=== PATIENT | female | born 1990 | race Caucasian/White ===

== ENCOUNTER 2023-07-11 16:05 | Outpatient (REF) | payer BC, SELFPAY | END 2023-07-11 16:06 | disposition home or self-care (01) | LOC: LAB 16:05 | PROVIDERS: PCP Obstetrics & Gynecology; Visit Provider Obstetrics & Gynecology | DX: N92.0 Excessive and frequent menstruation with regular cycle (principal) | CPT/HCPCS: 88305 ==

== ENCOUNTER 2023-08-01 19:45 | Outpatient (REF) | payer BC, SELFPAY ==
--- OUTSIDE RECORDS SUMMARY | 2023-08-01 20:06 | XMS_ITS | CCD ---
Author Organization [facility] Care Team Providers Care Curriculum Designer Name Role Phone REQUEST, DR NONE LISTED Primary Care Unavaila ble WEST, DR YOLANDA Riddle Consulting Unavailable ARBEN, DR NICOLAS Attending Unavailable ARBEN, DR NICOLAS Admitting Unavailable ARBEN, DR NICOLAS Consulting Unavailable REQUEST, DR TEAGUE LISTED Primary Care Unavaila ble ARBEN, DR NICOLAS Attending Unavailable ARBEN, DR NICOLAS Admitting Unavailable REQUEST, DR TEAGUE LISTED Primary Care Unavaila ble ARBEN, DR NICOLAS Attending Unavailable ARBEN, DR NICOLAS Admitting Unavailable REQUEST, DR TEAGUE LISTED Primary Care Unavaila ble ARBEN, DR NICOLAS Attending Unavailable ARBEN, DR NICOLAS Admitting Unavailable ARBEN, DR NICOLAS Consulting Unavailable SHARP, ADELAIDA Consulting Unavailable ISRA II, GEORGES Consulting Unavailable REQUEST, DR TEAGUE LISTED Primary Care Unavaila ble ARBEN, DR NICOLAS Consulting Unavailable ARBEN, DR NICOLAS Attending Unavailable ARBEN, DR NICOLAS Admitting Unavailable Angelina Gómez Unavailable Fany Oneill Unavailable FIDENCIO THEODORE Attending Unavailable ARBEN, FIDENCIO Attending Unavailable Arben, Fidencio Attending Unavailable Fidencio Theodore Admitting Unavailable Fidencio Theodore Attending Provider [phone] Medications Current Medications Medication Drug Class(es) Dates Sig (Normalized) Sig (Original) fluticasone propionate 0.05 mg/actuat metered dose nasal spray (1 source) Corticosteroid Start: 01-08-2023 take 2 spray(s) nasal route once daily Fluticasone Propionate 50 MCG/ACT 2 sprays Nasally Once a day for 14 day(s) Dec, Active methylPREDNISolone 4 mg oral tablet (1 source) Corticosteroid Start: 01-08-2023 Medrol 4 MG as directed Orally As Directed for 6 days 13 Dec, 2022 Active Completed/Discontinued Medications Medication Drug Class(es) Dates Sig (Normalized) Sig (Original) 12 hr guaiFENesin 600 mg / pseudoephedrine hydrochloride 60 mg extended release oral tablet (2 sources) alpha-Adrenergic Agonist Start: 06-25-2022 take 2 tablets by mouth every twelve hours Mucinex D 60-600 MG 2 tablets as needed Orally Twice a day for 5 days May, Not-Taking Problems Problem Classification Problem Date Documented Date Episodic/Chronic Calculus of urinary tract (1 source) Calculus of kidney; Translations: [CALCULUS OF KIDNEY] Onset: 04-13-2022 Episodic Essential hypertension (1 source) Essential (primary) hypertension; Translations: [ESSENTIAL PRIMARY HYPERTENSION] Onset: 04-13-2022 Chronic Immunizations and screening for infectious disease (4 sources) Encounter for screening for human papillomavirus (HPV); Translations: [Contact with and (suspected) exposure to other viral communicable diseases] Onset: 02-22-2022 Episodic Menstrual disorders (5 sources) Excessive and frequent menstruation with regular cycle; Translations: [EXCESS FREQ MENSTRUATION W/REG CYCL] Onset: 04-12-2022 Chronic Other screening for suspected conditions (not mental disorders or infectious disease) (4 sources) Encounter for screening for malignant neoplasm of cervix; Translations: [ENC SCREENING MALIG NEOPLASM CERV] Onset: 02-15-2022 Episodic Other upper respiratory infections (2 sources) Acute upper respiratory infection, unspecified Episodic Residual codes; unclassified (1 source) Family history of malignant neoplasm, unspecified; Translations: [FAM HX MALIGNANT NEOPLASM UNS] Onset: 04-13-2022 Episodic Results Test Name Value Interpretation Reference Range Facility [facility] 07-11-2023 L Specimen: [id number] Received: 07/12/23 Status: VIN Sweet Num: [id number] Spec Type: Surgical Subm Dr: Fidencio Theodore Tissues: A Endometrium - Biopsy (EMBX) Procedures: HE/2, Gross/Micro L4 Age/ Patient Sex Location Account Attending Physician Berenice Robert 32/F LABELL [id number] Fidencio Theodore SPEC NUM: [id number] RECD: 07/12/23 STATUS: VIN SWEET NUM: [id number] RAHEEM: 07/11/23-1450 [facility] DR: Fidencio Theodore ENTERED: 07/12/23-1235 [facility] [address]: Lois,Lab SPEC TYPE: Surgical DEPT: RODRIGO STEVENS ORDERED: HE/2, Gross/Micro L4 ORDERED: HE, Gross/Micro L4 Pathological Diagnosis Endometrial biopsy: -Multiple strips of slightly unevenly developed secretory endometrium of the early phase type, including occasional persistent tubal metaplasia at the surface epithelium, and occasionally in the tubular glands are also focally noticed, otherwise without any hyperplasia or atypia identified Gross Description Received in formalin, labeled with the patient's name, date of and EM BX are multiple lai tissue fragments measuring in aggregate 1.9 x 0.7 x 0.2 cm, entirely submitted in A1. Clinical history: Menorrhagia with irregular cycle CPT Codes 39478 Specimen: [id number] Received: 07/12/23 Status: BRIANNAMelissa Sweet Num: [id number] Spec Type: Surgical Subm Dr: Fidencio Theodore Tissues: A Endometrium - Biopsy (EMBX) Procedures: HE/2, Gross/Micro L4 Patient: Berenice Robert [id number] (Continued) Signed (signature on file) Saul-Kavon Monaco MD 07/15/23 1457 Normal [facility] COVID + FLU Quick Testingon 06-25-2022 SARS-CoV-2 (COVID-19) RNA ANDREW+probe Ql (Unsp spec) Negative [facility] Other COVID + FLU Quick Testing Negative [facility] Other Quick Strepon 06-25-2022 S. pyogenes Org specific cx Ql (Throat) Negative [facility] Other Quick Strep [facility] Other CBC AUTO DIFFon 04-12-2022 BASO # 0.1 103/ul Normal 0.0-0.1 [facility] Comment on above: Performed By: #### C BC #### [facility] [address] [place] [address] Dr. Peri Monaco Basophils/100 WBC (Bld) 0.5 % Normal 0.2-2.0 [facility] Comment on above: Performed By: #### C BC #### [facility] [address] [place] [address] Dr. Peri Monaco EO # 0.3 103/ul Normal 0.0-0.7 [facility] Comment on above: Performed By: #### C BC #### [facility] [address] [place] [address] Dr. Peri Monaco Eosinophils/100 WBC (Bld) 3.0 % Normal 0.9-7.0 [facility] Comment on above: Performed By: #### C BC #### [facility] [address] [place] [address] Dr. Peri Monaco Erythrocyte distribution width (RBC) [Ratio] 12.5 % Normal 11.0-15.0 [facility] Comment on above: Performed By: #### C BC #### [facility] [address] [place] [address] Dr. Peri Monaco Hematocrit (Bld) [Volume fraction] 40.2 % Normal 36.0-48.0 [facility] Comment on above: Performed By: #### C BC #### [facility] [address] [place] [address] Dr. Peri Monaco Hemoglobin (Bld) [Mass/Vol] 13.7 g/dL Normal 12.0-16.0 [facility] Comment on above: Performed By: #### C BC #### [facility] [address] [place] [address] Dr. Peri Monaco IG # 0.04 10e3/ul Critically high 0.00-0.03 [facility] Comment on above: Performed By: #### C BC #### [facility] [address] [place] [address] Dr. Peri Monaco IG % 0.3 % Normal 0.0-0.5 [facility] Comment on above: Performed By: #### C BC #### [facility] [address] [place] [address] Dr. Peri Monaco LYMPH # 3.4 103/ul Normal 1.2-3.8 [facility] Comment on above: Performed By: #### C BC #### [facility] [address] [place] [address] Dr. Peri Monaco Lymphocytes/100 WBC (Bld) 29.8 % Normal 20.5-60.0 [facility] Comment on above: Performed By: #### C BC #### [facility] [address] [place] [address] Dr. Peri Monaco MANUAL DIFF REQ NO Normal [facility] Comment on above: Performed By: #### C BC #### [facility] [address] [place] [address] Dr. Peri Monaco MCH (RBC) [Entitic mass] 28.9 pg Normal 26.7-34.0 [facility] Comment on above: Performed By: #### C BC #### [facility] [address] [place] [address] Dr. Peri Monaco MCHC (RBC) [Mass/Vol] 34.1 g/dL Normal 29.9-35.2 [facility] Comment on above: Performed By: #### C BC #### [facility] [address] [place] [address] Dr. Peri Monaco MCV (RBC) [Entitic vol] 84.8 fL Normal 81.0-99.0 [facility] Comment on above: Performed By: #### C BC #### [facility] [address] [place] [address] Dr. Peri Monaco MONO # 0.7 103/ul Normal 0.3-0.8 [facility] Comment on above: Performed By: #### C BC #### [facility] [address] [place] [address] Dr. Peri Monaco Monocytes/100 WBC (Bld) 5.8 % Normal 1.7-12.0 [facility] Comment on above: Performed By: #### C BC #### [facility] [address] [place] [address] Dr. Peri Monaco NEUT # 7.0 103/ul Critically high 1.4-6.5 [facility] Comment on above: Performed By: #### C BC #### [facility] [address] [place] [address] Dr. Peri Monaco Neutrophils/100 WBC (Bld) 60.6 % Normal 43.0-75.0 [facility] Comment on above: Performed By: #### C BC #### [facility] [address] [place] [address] Dr. Peri Monaco Platelet mean volume (Bld) [Entitic vol] 10.7 fL Normal 9.5-13.5 [facility] Comment on above: Performed By: #### C BC #### [facility] [address] [place] [address] Dr. Peri Monaco PLT 368 103/ul Normal 150-450 [facility] Comment on above: Performed By: #### C BC #### [facility] [address] [address] [address] Peri Monaco RBC 4.74 106/ul Normal 4.20-5.40 [facility] Comment on above: Performed By: #### C BC #### [facility] [address] [place] [address] Dr. Peri Monaco WBC 11.5 103/ul Critically high 4.0-11.0 [facility] Comment on above: Performed By: #### C BC #### [facility] [address] [place] [address] Dr. Peri Monaco PREG HCG QUALon 04-12-2022 , QUAL Negative Normal NEGATIVE [facility] Comment on above: Performed By: #### P REG #### [facility] [address] [place] [address] Dr. Peri Monaco CBC AUTO DIFFon 03-06-2022 BASO # 0.1 103/ul Normal 0.0-0.1 [facility] Comment on above: Performed By: #### C BC #### [facility] [address] [place] [address] Dr. Peri Monaco Basophils/100 WBC (Bld) 0.6 % Normal 0.2-2.0 [facility] Comment on above: Performed By: #### C BC #### [facility] [address] [place] [address] Dr. Peri Monaco EO # 0.3 103/ul Normal 0.0-0.7 [facility] Comment on above: Performed By: #### C BC #### [facility] [address] [place] [address] Dr. Peri Monaco Eosinophils/100 WBC (Bld) 2.9 % Normal 0.9-7.0 [facility] Comment on above: Performed By: #### C BC #### [facility] [address] [place] [address] Dr. Peri Monaco Erythrocyte distribution width (RBC) [Ratio] 12.0 % Normal 11.0-15.0 [facility] Comment on above: Performed By: #### C BC #### [facility] [address] [place] [address] Dr. Peri Monaco Hematocrit (Bld) [Volume fraction] 37.6 % Normal 36.0-48.0 [facility] Comment on above: Performed By: #### C BC #### [facility] [address] [place] [address] Dr. Peri Monaco Hemoglobin (Bld) [Mass/Vol] 13.5 g/dL Normal 12.0-16.0 [facility] Comment on above: Performed By: #### C BC #### [facility] [address] [place] [address] Dr. Peri Monaco IG # 0.03 10e3/ul Normal 0.00-0.03 [facility] Comment on above: Performed By: #### C BC #### [facility] [address] [place] [address] Dr. Peri Monaco IG % 0.3 % Normal 0.0-0.5 [facility] Comment on above: Performed By: #### C BC #### [facility] [address] [place] [address] Dr. Peri Monaco LYMPH # 2.7 103/ul Normal 1.2-3.8 [facility] Comment on above: Performed By: #### C BC #### [facility] [address] [place] [address] Dr. Peri Monaco Lymphocytes/100 WBC (Bld) 26.6 % Normal 20.5-60.0 [facility] Comment on above: Performed By: #### C BC #### [facility] [address] [place] [address] Dr. Peri Monaco MANUAL DIFF REQ NO Normal [facility] Comment on above: Performed By: #### C BC #### [facility] [address] [place] [address] Dr. Peri Monaco MCH (RBC) [Entitic mass] 28.7 pg Normal 26.7-34.0 [facility] Comment on above: Performed By: #### C BC #### [facility] [address] [place] [address] Dr. Peri Monaco MCHC (RBC) [Mass/Vol] 35.9 g/dL Critically high 29.9-35.2 [facility] Comment on above: Performed By: #### C BC #### [facility] [address] [place] [address] Dr. Peri Monaco MCV (RBC) [Entitic vol] 79.8 fL Critically low 81.0-99.0 [facility] Comment on above: Performed By: #### C BC #### [facility] [address] [place] [address] Dr. Peri Monaco MONO # 0.7 103/ul Normal 0.3-0.8 [facility] Comment on above: Performed By: #### C BC #### [facility] [address] [place] [address] Dr. Peri Monaco Monocytes/100 WBC (Bld) 6.5 % Normal 1.7-12.0 [facility] Comment on above: Performed By: #### C BC #### [facility] [address] [place] [address] Dr. Peri Monaco NEUT # 6.5 103/ul Normal 1.4-6.5 [facility] Comment on above: Performed By: #### C BC #### [facility] [address] [place] [address] Dr. Peri Monaco Neutrophils/100 WBC (Bld) 63.1 % Normal 43.0-75.0 [facility] Comment on above: Performed By: #### C BC #### [facility] [address] [place] [address] Dr. Peri Monaco Platelet mean volume (Bld) [Entitic vol] 10.2 fL Normal 9.5-13.5 [facility] Comment on above: Performed By: #### C BC #### [facility] [address] [place] [address] Dr. Peri Monaoc PLT 377 103/ul Normal 150-450 [facility] Comment on above: Performed By: #### C BC #### [facility] [address] [place] [address] Dr. Peri Monaco RBC 4.71 106/ul Normal 4.20-5.40 [facility] Comment on above: Performed By: #### C BC #### [facility] [address] [place] [address] Dr. Peri Monaco WBC 10.2 103/ul Normal 4.0-11.0 [facility] Comment on above: Performed By: #### C BC #### [facility] [address] [place] [address] Dr. Peri Monaco FREE T4on 03-06-2022 Free T4 [Mass/Vol] 0.76 ng/dL Normal 0.76-1.46 [facility] Comment on above: Performed By: #### F T4 #### [facility] [address] [place] [address] Dr. Peri Monaco GLYCOHEMOGLOBIN A1Con 2022 ADA RECOMMENDATION SEE BELOW Normal [facility] Comment on above: Result Comment: ADA RECOMMENDED LIMIT 4.0 - 6.0 ADA THERAPEUTIC TARGET < 7.0 ACTION SUGGESTED > 7.0 Performed By: #### C BC #### [facility] [address] [place] [address] Dr. Peri Monaco Glucose [Mass/Vol] 108 mg/dL Normal [facility] Comment on above: Performed By: #### C BC #### [facility] [address] [place] [address] Dr. Peri Monaco HbA1c (Bld) [Mass fraction] 5.4 % Normal 4.5-6.2 [facility] Comment on above: Performed By: #### C BC #### [facility] [address] [place] [address] Dr. Peri Monaco PROTIMEon 03-06-2022 INR Coag (PPP) [Relative time] 0.95 {INR} Normal [facility] Comment on above: Performed By: #### P T, PTT #### [facility] [address] [place] [address] Dr. Peri Monaco INR GUIDELINES SEE BELOW Normal [facility] Comment on above: Result Comment: WILLY RED INR: 2.0 - 3.0 CONDITIONS NOT LISTED BELOW 2.5 - 3.5 FOR PROSTHETIC HEART VALVE REPLACEMENT 2.5 - 3.5 RECURRENT THROMBOSIS Performed By: #### P T, PTT #### [facility] [address] [place] [address] Dr. Peri Monaco PT Coag (PPP) [Time] 10.3 s Normal 9.0-11.6 [facility] Comment on above: Performed By: #### P T, PTT #### [facility] [address] [place] [address] Dr. Peri Monaco PTTon 03-06-2022 aPTT Coag (Bld) [Time] 34.8 s Normal 22.3-36.2 [facility] Comment on above: Performed By: #### P T, PTT #### [facility] [address] [place] [address] Dr. Peri Monaco TSHon 03-06-2022 TSH 1.516 uIU/mL Normal 0.358-3.740 [facility] Comment on above: Performed By: #### C BC #### [facility] [address] [place] [address] Dr. Peri Monaco US PELVIS AND TRANSVAGon US PELVIS AND TRANSVAG EXAMINATION: US PELVIS AND TRANSVAG HISTORY: Excessive and frequent menstruation COMPARISON: 07/14/2020 FINDINGS: Transabdominal and transvaginal images The uterus is normal in size, contour and myometrial echotexture measuring 9.4 x 5.3 x 4.5 cm, anteverted. No focal myometrial mass The endometrium measures 10 mm, normal. Small amount of fluid in the endometrial cavity, nonspecific The right ovary is normal in appearance measuring 2.9 x 1.6 x 1.6 cm. Normal follicles. Normal color and Doppler flow The left ovary is normal in appearance measuring 3.2 x 2.8 x 2.7 cm. Normal follicles. Normal color Doppler flow No free fluid. Dilated right adnexal vessels with increased flow during Valsalva IMPRESSION: Right adnexal hypervascularity, consider pelvic vascular congestion/uterine vein reflux Electronically authenticated by: YOLANDA DELCID Date: 2022-03-06 11:40 Normal [facility] PAP ACOG PANEL 2: 30 to 65on 02-28-2022 . . Normal [facility] Comment on above: Result Comment: Perf ormed at: WB Performed By: #### [id number] #### [facility] [address] [address] [address] Peri Monaco Age Gdln ACOG Testing 30-65 Normal [facility] Comment on above: Performed By: #### [id number] #### [facility] [address] [place] [address] Dr. Peri Monaco DIAGNOSIS: Comment Normal [facility] Comment on above: Result Comment: NEGA TIVE FOR INTRAEPITHELIAL LESION OR MALIGNANCY. FUNGAL ORGANISMS MORPHOLOGICALLY CONSISTENT WITH SHEILA SPECIES ARE PRESENT. Performed at: WB Performed By: #### [id number] #### [facility] [address] [address] [address] Peri Monaco HPV Aptima Negative Normal Negative [facility] Comment on above: Result Comment: This nucleic acid amplification test detects fourteen high-risk HPV types (16,18,31,33,35,39,45,51,52,56,58,59,66,68) without differentiation. Performed at: =G Performed By: #### [id number] #### [facility] [address] [address] [address] Peri Monaco HPV Genotype Reflex Comment Normal [facility] Comment on above: Result Comment: Crit eria not met, HPV Genotype not performed. Performed at: WB Performed By: #### [id number] #### [facility] [address] [place] [address] Dr. Peri Monaco Methodology: Comment Normal [facility] Comment on above: Result Comment: This liquid based ThinPrep(R) pap test was screened with the use of an image guided system. Performed at: WB Performed By: #### [id number] #### [facility] [address] [place] [address] Dr. Peri Monaco Note: Comment Normal [facility] Comment on above: Result Comment: The Pap smear is a screening test designed to aid in the detection of premalignant and malignant conditions of the uterine cervix. It is not a diagnostic procedure and should not be used as the sole means of detecting cervical cancer. Both false-positive and false-negative reports do occur. . Performed at: WB Performed By: #### [id number] #### [facility] [address] [place] [address] Dr. Peri Monaco Performed by: Comment Normal [facility] Comment on above: Result Comment: Jozef Aguirre Binder Layer (ASCP) Performed at: WB Performed By: #### [id number] #### [facility] [address] [place] [address] Dr. Peri Monaco Specimen adequacy: Comment Normal [facility] Comment on above: Result Comment: Sati sfactory for evaluation. Endocervical and/or squamous metaplastic cells (endocervical component) are present. Performed at: WB Performed By: #### [id number] #### [facility] [address] [place] [address] Dr. Peri Monaco CHLAMYDIA/GONOCOCCUS ANDREW (SW AB/URINE/PAPon 02-18-2022 Chlamydia trachomatis, ANDREW Negative Normal Negative [facility] Comment on above: Performed By: #### C T/NGNA #### [facility] [address] [place] [address] Dr. Peri Monaco Neisseria gonorrhoeae, ANDREW Negative Normal Negative [facility] Comment on above: Performed By: #### C T/NGNA #### [facility] [address] [place] [address] Dr. Peri Monaco VAGINITIS/VAGINOSIS DNA PROB Jeffy 02-17-2022 Sheila species Negative Normal Negative [facility] Comment on above: Performed By: #### V AGINT #### [facility] [address] [place] [address] Dr. Peri Monaco Gardnerella vaginalis Negative Normal Negative [facility] Comment on above: Performed By: #### V AGINT #### [facility] [address] [address] [address] Peri Monaco Trichomonas vaginalis Negative Normal Negative [facility] Comment on above: Performed By: #### V AGINT #### [facility] [address] [address] [address] Peri Monaco Provider Letteron 10-22-2020 Provider Letter October 22, 2020 October 22, 2020 MIRACLE BERENICE [address] [place] [address] MIRACLE, BERENICE A 1990 Dear Berenice Robert, You missed your scheduled appointment on: 10/22/[address] Jhonny Park and the purpose of this letter is to inform you of our *No Show Policy*. Our appointment slots fill rapidly and when we have a no show appointment that time is lost. We could have used that time slot to care for a patient who needed to see one of our providers. Therefore, we ask that you call 24 hours in advance to cancel your appointment. This policy is in place so that we can meet the needs of all of our patients and we do appreciate your understanding. Sincerely, [facility] [address], [place] [address] [facility] Vital Signs Date Time Vital Sign Value Performing Clinician Facility 01-08-2023 15:20-0500 Body height 167.64 cm Fany Oneill Other [facility] 01-08-2023 15:20-0500 Body mass index (BMI) [Ratio] 31.31 kg/m2 Fany Oneill Other [facility] 01-08-2023 15:20-0500 Body temperature 99.7 [degF] Fany Oneill Other [facility] Other 01-08-2023 15:20-0500 Body weight 88 kg Fany Oneill Other [facility] 01-08-2023 15:20-0500 Respiratory rate 20 /min Fany Oneill Other [facility] 01-08-2023 15:20-0500 SaO2% (BldA) [Mass fraction] 98 % Fany Oneill Other [facility] Other 06-25-2022 14:20-0400 Body height 167.64 cm Angelina Gómez Other [facility] Other 06-25-2022 14:20-0400 Body mass index (BMI) [Ratio] 32.28 kg/m2 Angelina Gómez Other [facility] Other 06-25-2022 14:20-0400 Body temperature 98 [degF] Aneglina Gómez Other [facility] Other 06-25-2022 14:20-0400 Body weight 90.72 kg Angelina Gómez Other [facility] Other 06-25-2022 14:20-0400 Diastolic blood pressure 93 mm[Hg] Angelina Gómez Other [facility] Other 06-25-2022 14:20-0400 Respiratory rate 18 /min Angelina Gómez Other [facility] Other 06-25-2022 14:20-0400 SaO2% (BldA) [Mass fraction] 98 % Angelina Gómez Other [facility] Other 06-25-2022 14:20-0400 Systolic blood pressure 162 mm[Hg] Angelina Gómez Other [facility] Other Encounters Encounter Date Encounter Type Care Provider Facility Start: 07-11-2023 End: 07-11-2023 ambulatory FIDENCIOSang THEODORE Not Available Start: 07-11-2023 End: 07-11-2023 ambulatory Fidencio Theodore Work Phone: [facility] Work Phone: Start: 07-11-2023 End: 07-11-2023 Departed Referred Fidencio Theodore Work Phone: [facility] Start: 07-04-2023 End: 07-04-2023 ambulatory FIDENCIO THEODORE Not Available Start: 01-08-2023 End: 01-08-2023 ambulatory Fany Oneill Other [facility] Other Start: 01-08-2023 Office outpatient vi sit 15 minutes Fany Oneill [facility] Start: 06-25-2022 End: 06-25-2022 ambulatory Angelina Gómez Other [facility] Other Start: 06-25-2022 Office outpatient ne w 30 minutes Angelina Gómez [facility] Start: 04-13-2022 Encounter for other preprocedural examination DR FIDENCIO THEODORE [facility] Start: 04-12-2022 End: 04-12-[address] NONE LISTED REQUEST Facility: Start: 04-08-[address] NONE LISTED REQUEST Facility: Start: 04-07-2022 End: 04-08-[address] NONE LISTED REQUEST Facility: Start: 04-07-2022 End: 04-08-2022 Encounter for other preprocedural examination DR NONE LISTED REQUEST Facility: Start: 03-06-2022 End: 03-07-[address] NONE LISTED REQUEST Facility: Start: 02-15-2022 End: 02-15-[address] NONE LISTED REQUEST Facility: Payers Date Payer Category Payer Self-pay 1990 Unknown [id number] 2.16.84 [id number] 1991 Unknown [id number] 2.16.84 [id number] 1991 Unknown [id number] 2.16.84 [id number] 1991 Unknown [id number] 2.16.84 [id number] 1991 Unknown [id number] 2.16.84 [id number] 1991 Unknown [id number] 2.16.84 [id number] 1991 Unknown [id number] 2.16.84 [id number] 1959 Unknown [id number] Social History Date Type Detail Facility Sex Assigned At [facility] Other Start: 1990 Sex Assigned At Female F [facility] Evaluation note 01-08-2023 Note Date & Type Note Facility 01-08-2023 Evaluation note Encounter Date Diagnosis Assessment Notes Dec, Upper respiratory virus (ICD-10 - J06.9) Viral upper respiratory infection: adult home care material was printed Drink plenty fluids, get plenty of rest. Take the Medrol Dosepak as prescribed until gone. Use the fluticasone nasal spray as prescribed until your symptoms improve. Take Tylenol or Motrin as needed for aches pains or fevers. Off work tonight. Follow-up with your family physician if no improvement in 2 to 3 days [facility] Other Evaluation note 06-25-2022 Note Date & Type Note Facility 06-25-2022 Evaluation note Encounter Date Diagnosis Assessment Notes May, Contact with and (suspected) exposure to other viral communicable diseases (ICD-10 - Z20.828) May, Viral URI with cough (ICD-10 - J06.9) Advised patient that rapid COVID/Influenza A/B test and rapid Strep test was negative today. Advised patient that will treat as viral URI. Supportive care as directed, increase fluids and rest, Tylenol/Motrin as directed, rx of Mucinex, OTC Flonase, cool mist humidifier, throat lozenges. Discussed infection control practices such as good hand washing and mask wearing. Patient to follow up with PCP if symptoms persist or worsen despite treatment. Immediate eval for SOB, difficulty breathing, chest pain, fevers that do not break with antipyretic or any other concerning symptoms as reviewed on patient education handout. Patient verbalizes understanding and is agreeable to treatment plan. Patient left in stable condition. [facility] Other Clinical Note 04-12-2022 Note Date & Type Note Facility 04-12-2022 Note OPERATIVE NOTE OPERATION DATE: 04/12/2022 PROCEDURE: Joslyn endometrial ablation with hysteroscopy. PREOPERATIVE DIAGNOSIS: Menorrhagia. POSTOPERATIVE DIAGNOSIS: Menorrhagia. ANESTHESIA: General. SURGEON: Fidencio Theodore D.O. RESEARCH CENTER PARTNER: None. FINDINGS: Normal appearing cavity. No gross evidence of polyps, fibroid or malignancy. Both ostia seen. SPECIMEN: None. BLOOD LOSS: 5 mL. URINE OUTPUT: Yellow and clear. PROCEDURE: The patient was taken back to the OR where she was prepped and draped in the normal sterile fashion after being placed in the dorsal lithotomy position, after being placed under general anesthesia without difficulty. A weighted speculum was placed into the vagina. The anterior lip was grasped with a single tooth tenaculum. The patient was then sounded to approximated 9 cm. The patient's cervix was gently dilated using Hegar dilators. The hysteroscope was passed through the cervix into the uterus where both ostia were seen. No gross evidence of polyps, fibroids or malignancy. The cervical length was noted to be 4 cm. The total cavity length is 5 cm. The Joslyn ablation apparatus was set to approximately 5 cm in length. This was placed through the cervix and into the uterus. After the seal was tested, at that time the total ablation of 120 seconds was performed with the Joslyn without difficulty. All instruments were removed from the vagina. Excellent hemostasis noted. Sponge and lap count correct times 2. Patient taken to recovery in stable condition. [facility] Evaluation note Note Date & Type Note Facility Evaluation note No assessment information availa [facility] Work Phone: History general Narrative - Reported Note Date & Type Note Facility History general Narrative - Reported Type Surgical History ablasion Surgical History tubal ligation Surgical History tonsillectomy Surgical History lithotripsy Hospitalization History see above [facility] Other Summary Purpose Family History Relationship Condition Age at Onset Recorded Date/T suzette Not Specified Hypertension Unknown Advance Directives No Advanced Directives Records FoundNo Advanced Directives Records FoundNo Advanced Directives Records FoundNo Advanced Directives Records Found Additional Source Comments INFORMATION SOURCE (unrecogn ized section and content) DATE CREATED AUTHOR 10/23/2020 [facility] DATE CREATED AUTHOR AUTHOR'S ORGANIZ ATION 04/13/2022 [facility] DATE CREATED AUTHOR AUTHOR'S ORGANIZ ATION 07/13/2023 [facility] EPIC DATE CREATED AUTHOR AUTHOR'S ORGANIZ ATION 07/17/2023 [facility] REASON FOR VISIT (unrecogniz ed section and content) COUGH, CONGESTIONPRESSURE IN HEAD, CAN'T HEAR OUT OF RIGHT EAR, AND CONGESTION Care Teams (unrecognized sec tion and content) Team Status: Inactive Member Role Status Dates Fidencio Theodore Attending Provider Active Start: Odalis 2023 End: July 11, 2023 Goals (unrecognized section and content) Goals may be documented in a n alternate section FOR RECORDS PERTAINING TO PATIENTS WHO ARE OR HAVE BEEN ENROLLED IN A CHEMICAL DEPENDENCY/SUBSTANCEABUSE PROGRAM, SOME INFORMATION MAY BE OMITTED. This clinical summary was aggregated from multiple sources. Caution should be exercised in using it in the provision of clinical care. This summary normalizes information from multiple sources, and as a consequence, information in this document may materially change the coding, format and clinical context of patient data. In addition, data may be omitted in some cases. CLINICAL DECISIONS SHOULD BE BASED ON THE PRIMARY CLINICAL RECORDS. [employer] provides no warranty or guarantee of the accuracy or completeness of information in this document.
[2023-08-06 12:08] LABS: Age Gdln ACOG Testing Note (.); HPV Aptima Negative (Negative); IGP, Aptima HPV, rfx 16/18,45 Note (.)
== END 2023-08-01 19:46 | disposition home or self-care (01) ==
LOC: LAB 19:45
PROVIDERS: PCP Obstetrics & Gynecology; Visit Provider Obstetrics & Gynecology
DX: Z01.419 Encounter for gynecological examination (general) (routine) without abnormal findings (principal)
CPT/HCPCS: 87624; 88175

== ENCOUNTER 2023-08-21 07:47 | Outpatient (OUT) | payer BC, SELFPAY ==
--- OUTSIDE RECORDS SUMMARY | 2023-08-21 07:51 | XMS_ITS | CCD ---
Author Organization [facility] Care Team Providers Care Clark Driver Name Role Phone REQUEST, DR NONE LISTED Primary Care Unavaila ble WEST, DR YOLANDA Riddle Consulting Unavailable KIM, DR NICOLAS Attending Unavailable KIM, DR NICOLAS Admitting Unavailable KIM, DR NICOLAS Consulting Unavailable REQUEST, DR TEAGUE LISTED Primary Care Unavaila ble KIM, DR NICOLAS Attending Unavailable KIM, DR NICOLAS Admitting Unavailable REQUEST, DR TEAGUE LISTED Primary Care Unavaila ble KIM, DR NICOLAS Attending Unavailable KIM, DR NICOLAS Admitting Unavailable REQUEST, DR TEAGUE LISTED Primary Care Unavaila ble KIM, DR NICOLAS Attending Unavailable KIM, DR NICOLAS Admitting Unavailable KIM, DR NICOLAS Consulting Unavailable SHARP, ADELAIDA Consulting Unavailable ISRA II, GEORGES Consulting Unavailable REQUEST, DR TEAGUE LISTED Primary Care Unavaila ble KIM, DR NICOLAS Consulting Unavailable KIM, DR NICOLAS Attending Unavailable KIM, DR NICOLAS Admitting Unavailable Angelina Gómez Unavailable Fany Oneill Unavailable Fidencio Theodore Attending Unavailable Fidencio Theodore Admitting Unavailable Fidencio Theodore Attending Provider FIDENCIO THEODORE Attending Unavailable FIDENCIO THEODORE Attending Unavailable FIDENCIO THEODORE Attending Unavailable Medications Current Medications Medication Drug Class(es) Dates [...] Test Name Value Interpretation Reference Range Facility [facility] 07-11-2023 L Specimen: [id number] Received: 07/12/23 Status: VIN Sweet Num: [id number] Spec Type: Surgical Subm Dr: Fidencio Theodore Tissues: A Endometrium - Biopsy (EMBX) Procedures: HE/2, Gross/Micro L4 Age/ Patient Sex Location Account Attending Physician Berenice Robert 32/F LABELL [id number] Fidencio Theodore SPEC NUM: [id number] RECD: 07/12/23 STATUS: VIN SWEET NUM: [id number] RAHEEM: 07/11/23-0 [facility] DR: Fidencio Theodore ENTERED: 07/12/23-1235 [facility] DR: Lois,Lab SPEC TYPE: Surgical DEPT: RODRIGO STEVENS ORDERED: HE/2, Gross/Micro L4 ORDERED: HE/2, Gross/Micro L4 Pathological Diagnosis Endometrial biopsy: -Multiple [...] history: Menorrhagia with irregular cycle CPT Codes 22332 Specimen: [id number] [facility]ceived: 07/12/23 [id number] Spec Type: Surgical Subm Dr: Fidencio Theodore Tissues: A Endometrium - Biopsy (EMBX) Procedures: HE/2, Gross/Micro L4 Patient: Berenice Robert [id number] (Continued) Signed (signature on file) Saul-Kavon Monaco MD 07/15/23 1457 Normal [facility] COVID + FLU Quick Testingon 06-25-2022 SARS-CoV-2 (COVID-19) RNA ANDREW+probe Ql (Unsp spec) Negative [facility] Other COVID + FLU Quick Testing Negative [facility] Other Quick Strepon 06-25-2022 S. pyogenes Org specific cx Ql (Throat) Negative [facility] Other Quick Strep [facility] Other CBC AUTO DIFFon 04-12-2022 BASO # 0.1 103/ul Normal 0.0-0.1 [facility] Comment on above: Performed By: #### C BC #### [facility] [address] [place] [address] Dr. Peri Monaco Basophils/100 WBC (Bld) 0.5 % Normal 0.2-2.0 [facility] Comment on above: Performed By: #### C BC #### [facility] [address] [place] [address] Dr. Peri Monaco EO # 0.3 103/ul Normal 0.0-0.7 [facility] Comment on above: Performed By: #### C BC #### [facility] [address] [place] [address] Dr. Peri Monaco Eosinophils/100 WBC (Bld) 3.0 % Normal 0.9-7.0 [facility] Comment on above: Performed By: #### C BC #### [facility] [address] [place] [address] Dr. Peri Monaco Erythrocyte distribution width (RBC) [Ratio] 12.5 % Normal 11.0-15.0 [facility] Comment on above: Performed By: #### C BC #### [facility] [address] [place] [address] Dr. Peri Monaco Hematocrit (Bld) [Volume fraction] 40.2 % Normal 36.0-48.0 [facility] Comment on above: Performed By: #### C BC #### [facility] [address] [place] [address] Dr. Peri Monaco Hemoglobin (Bld) [Mass/Vol] 13.7 g/dL Normal 12.0-16.0 [facility] Comment on above: Performed By: #### C BC #### [facility] [address] [place] [address] Dr. Peri Monaco IG # 0.04 10e3/ul Critically high 0.00-0.03 [facility] Comment on above: Performed By: #### C BC #### [facility] [address] [place] [address] Dr. Peri Monaco IG % 0.3 % Normal 0.0-0.5 [facility] Comment on above: Performed By: #### C BC #### [facility] [address] [place] [address] Dr. Peri Monaco LYMPH # 3.4 103/ul Normal 1.2-3.8 [facility] Comment on above: Performed By: #### C BC #### [facility] [address] [place] [address] Dr. Peri Monaco Lymphocytes/100 WBC (Bld) 29.8 % Normal 20.5-60.0 [facility] Comment on above: Performed By: #### C BC #### [facility] [address] [place] [address] Dr. Peri Monaco MANUAL DIFF REQ NO Normal [facility] Comment on above: Performed By: #### C BC #### [facility] [address] [place] [address] Dr. Peri Monaco MCH (RBC) [Entitic mass] 28.9 pg Normal 26.7-34.0 [facility] Comment on above: Performed By: #### C BC #### [facility] [address] [place] [address] Dr. Peri Monaco MCHC (RBC) [Mass/Vol] 34.1 g/dL Normal 29.9-35.2 [facility] Comment on above: Performed By: #### C BC #### [facility] [address] [place] [address] Dr. Peri Monaco MCV (RBC) [Entitic vol] 84.8 fL Normal 81.0-99.0 [facility] Comment on above: Performed By: #### C BC #### [facility] [address] [place] [address] Dr. Peri Monaco MONO # 0.7 103/ul Normal 0.3-0.8 [facility] Comment on above: Performed By: #### C BC #### [facility] [address] [place] [address] Dr. Peri Monaco Monocytes/100 WBC (Bld) 5.8 % Normal 1.7-12.0 [facility] Comment on above: Performed By: #### C BC #### [facility] [address] [place] [address] Dr. Peri Monaco NEUT # 7.0 103/ul Critically high 1.4-6.5 [facility] Comment on above: Performed By: #### C BC #### [facility] [address] [place] [address] Dr. Peri Monaco Neutrophils/100 WBC (Bld) 60.6 % Normal 43.0-75.0 [facility] Comment on above: Performed By: #### C BC #### [facility] [address] [place] [address] Dr. Peri Monaco Platelet mean volume (Bld) [Entitic vol] 10.7 fL Normal 9.5-13.5 [facility] Comment on above: Performed By: #### C BC #### [facility] [address] [place] [address] Dr. Peri Monaco PLT 368 103/ul Normal 150-450 [facility] Comment on above: Performed By: #### C BC #### [facility] [address] [place] [address] Dr. Peri Monaco RBC 4.74 106/ul Normal 4.20-5.40 [facility] Comment on above: Performed By: #### C BC #### [facility] [address] [place] [address] Dr. Peri Monaco WBC 11.5 103/ul Critically high 4.0-11.0 [facility] Comment on above: Performed By: #### C BC #### [facility] [address] [place] [address] Dr. Peri Monaco PREG HCG QUALon 04-12-2022 , QUAL Negative Normal NEGATIVE [facility] Comment on above: Performed By: #### P REG #### [facility] [address] [place] [address] Dr. Peri Monaco CBC AUTO DIFFon 03-06-2022 BASO # 0.1 103/ul Normal 0.0-0.1 [facility] Comment on above: Performed By: #### C BC #### [facility] [address] [place] [address] Dr. Peri Monaco Basophils/100 WBC (Bld) 0.6 % Normal 0.2-2.0 [facility] Comment on above: Performed By: #### C BC #### [facility] [address] [place] [address] Dr. Peri Monaco EO # 0.3 103/ul Normal 0.0-0.7 [facility] Comment on above: Performed By: #### C BC #### [facility] [address] [place] [address] Dr. Peri Monaco Eosinophils/100 WBC (Bld) 2.9 % Normal 0.9-7.0 [facility] Comment on above: Performed By: #### C BC #### [facility] [address] [place] [address] Dr. Peri Monaco Erythrocyte distribution width (RBC) [Ratio] 12.0 % Normal 11.0-15.0 [facility] Comment on above: Performed By: #### C BC #### [facility] [address] [place] [address] Dr. Peri Monaco Hematocrit (Bld) [Volume fraction] 37.6 % Normal 36.0-48.0 [facility] Comment on above: Performed By: #### C BC #### [facility] [address] [place] [address] Dr. Peri Monaco Hemoglobin (Bld) [Mass/Vol] 13.5 g/dL Normal 12.0-16.0 [facility] Comment on above: Performed By: #### C BC #### [facility] [address] [place] [address] Dr. Peri Monaco IG # 0.03 10e3/ul Normal 0.00-0.03 [facility] Comment on above: Performed By: #### C BC #### [facility] [address] [place] [address] Dr. Peri Monaco IG % 0.3 % Normal 0.0-0.5 [facility] Comment on above: Performed By: #### C BC #### [facility] [address] [place] [address] Dr. Peri Monaco LYMPH # 2.7 103/ul Normal 1.2-3.8 [facility] Comment on above: Performed By: #### C BC #### [facility] [address] [place] [address] Dr. Peri Monaco Lymphocytes/100 WBC (Bld) 26.6 % Normal 20.5-60.0 [facility] Comment on above: Performed By: #### C BC #### [facility] [address] [place] [address] Dr. Peri Monaco MANUAL DIFF REQ NO Normal [facility] Comment on above: Performed By: #### C BC #### [facility] [address] [address] [address] Peri Monaco MCH (RBC) [Entitic mass] 28.7 pg Normal 26.7-34.0 [facility] Comment on above: Performed By: #### C BC #### [facility] [address] [place] [address] Dr. Peri Monaco MCHC (RBC) [Mass/Vol] 35.9 g/dL Critically high 29.9-35.2 [facility] Comment on above: Performed By: #### C BC #### [facility] [address] [place] [address] Dr. Peri Monaco MCV (RBC) [Entitic vol] 79.8 fL Critically low 81.0-99.0 [facility] Comment on above: Performed By: #### C BC #### [facility] [address] [place] [address] Dr. Peri Monaco MONO # 0.7 103/ul Normal 0.3-0.8 [facility] Comment on above: Performed By: #### C BC #### [facility] [address] [place] [address] Dr. Peri Monaco Monocytes/100 WBC (Bld) 6.5 % Normal 1.7-12.0 [facility] Comment on above: Performed By: #### C BC #### [facility] [address] [place] [address] Dr. Peri Monaco NEUT # 6.5 103/ul Normal 1.4-6.5 [facility] Comment on above: Performed By: #### C BC #### [facility] [address] [place] [address] Dr. Peri Monaco Neutrophils/100 WBC (Bld) 63.1 % Normal 43.0-75.0 [facility] Comment on above: Performed By: #### C BC #### [facility] [address] [place] [address] Dr. Peri Monaco Platelet mean volume (Bld) [Entitic vol] 10.2 fL Normal 9.5-13.5 [facility] Comment on above: Performed By: #### C BC #### [facility] [address] [address] [address] Peri Monaco PLT 377 103/ul Normal 150-450 [facility] Comment on above: Performed By: #### C BC #### [facility] [address] [place] [address] Dr. Peri Monaco RBC 4.71 106/ul Normal 4.20-5.40 [facility] Comment on above: Performed By: #### C BC #### [facility] [address] [place] [address] Dr. Peri Monaco WBC 10.2 103/ul Normal 4.0-11.0 [facility] Comment on above: Performed By: #### C BC #### [facility] [address] [place] [address] Dr. Peri Monaco FREE T4on 03-06-2022 Free T4 [Mass/Vol] 0.76 ng/dL Normal 0.76-1.46 [facility] Comment on above: Performed By: #### F T4 #### [facility] [address] [place] [address] Dr. Peri Monaco GLYCOHEMOGLOBIN A1Con 2022 ADA RECOMMENDATION SEE BELOW Normal [facility] Comment on above: Result Comment: ADA RECOMMENDED LIMIT 4.0 - 6.0 ADA THERAPEUTIC TARGET < 7.0 ACTION SUGGESTED > 7.0 Performed By: #### C BC #### [facility] [address] [place] [address] Dr. Peri Monaco Glucose [Mass/Vol] 108 mg/dL Normal [facility] Comment on above: Performed By: #### C BC #### [facility] [address] [place] [address] Dr. Peri Monaco HbA1c (Bld) [Mass fraction] 5.4 % Normal 4.5-6.2 [facility] Comment on above: Performed By: #### C BC #### [facility] [address] [place] [address] Dr. Peri Monaco PROTIMEon 03-06-2022 INR Coag (PPP) [Relative time] 0.95 {INR} Normal [facility] Comment on above: Performed By: #### P T, PTT #### [facility] [address] [place] [address] Dr. Peri Monaco INR GUIDELINES SEE BELOW Normal [facility] Comment on above: Result Comment: WILLY RED INR: 2.0 - 3.0 CONDITIONS NOT LISTED BELOW 2.5 - 3.5 FOR PROSTHETIC HEART VALVE REPLACEMENT 2.5 - 3.5 RECURRENT THROMBOSIS Performed By: #### P T, PTT #### [facility] [address] [place] [address] Dr. Peri Monaco PT Coag (PPP) [Time] 10.3 s Normal 9.0-11.6 [facility] Comment on above: Performed By: #### P T, PTT #### [facility] [address] [place] [address] Dr. Peri Monaco PTTon 03-06-2022 aPTT Coag (Bld) [Time] 34.8 s Normal 22.3-36.2 [facility] Comment on above: Performed By: #### P T, PTT #### [facility] [address] [place] [address] Dr. Peri Monaco TSHon 03-06-2022 TSH 1.516 uIU/mL Normal 0.358-3.740 [facility] Comment on above: Performed By: #### C BC #### [facility] [address] [place] [address] Dr. Peri Monaco US PELVIS AND TRANSVAGon [...] by: YOLANDA DELCID Date: 2022-03-06 11:40 Normal [facility] PAP ACOG PANEL 2: 30 to 65on 02-28-2022 . . Normal [facility] Comment on above: Result Comment: Perf ormed at: WB Performed By: #### [id number] #### [facility] [address] [address] [address] Peri Monaco Age Gdln ACOG Testing 30-65 Normal [facility] Comment on above: Performed By: #### [id number] #### [facility] [address] [place] [address] Dr. Peri Monaco DIAGNOSIS: Comment Normal [facility] Comment on above: Result Comment: NEGA TIVE FOR INTRAEPITHELIAL LESION OR MALIGNANCY. FUNGAL ORGANISMS MORPHOLOGICALLY CONSISTENT WITH SHEILA SPECIES ARE PRESENT. Performed at: WB Performed By: #### [id number] #### [facility] [address] [address] [address] Peri Monaco HPV Aptima Negative Normal Negative [facility] Comment on above: Result Comment: This nucleic acid amplification test detects fourteen high-risk HPV types (16,18,31,33,35,39,45,51,52,56,58,59,66,68) without differentiation. Performed at: =G Performed By: #### [id number] #### [facility] [address] [address] [address] Peri Monaco HPV Genotype Reflex Comment Normal [facility] Comment on above: Result Comment: Crit eria not met, HPV Genotype not performed. Performed at: WB Performed By: #### [id number] #### [facility] [address] [address] [address] Peri Monaco Methodology: Comment Normal [facility] Comment on above: Result Comment: This liquid based ThinPrep(R) pap test was screened with the use of an image guided system. Performed at: WB Performed By: #### [id number] #### [facility] [address] [place] [address] Dr. Peri Monaco Note: Comment Normal [facility] Comment on above: Result Comment: The Pap smear is a screening test designed to aid in the detection of premalignant and malignant conditions of the uterine cervix. It is not a diagnostic procedure and should not be used as the sole means of detecting cervical cancer. Both false-positive and false-negative reports do occur. . Performed at: WB Performed By: #### [id number] #### [facility] [address] [place] [address] Dr. Peri Monaco Performed by: Comment Normal [facility] Comment on above: Result Comment: Jozef Aguirre Casting Assistant (ASCP) Performed at: WB Performed By: #### [id number] #### [facility] [address] [place] [address] Dr. Peri Monaco Specimen adequacy: Comment Normal [facility] Comment on above: Result Comment: Sati sfactory for evaluation. Endocervical and/or squamous metaplastic cells (endocervical component) are present. Performed at: WB Performed By: #### [id number] #### [facility] [address] [place] [address] Dr. Peri Monaco CHLAMYDIA/GONOCOCCUS ANDREW (SW AB/URINE/PAPon 02-18-2022 Chlamydia trachomatis, ANDREW Negative Normal Negative [facility] Comment on above: Performed By: #### C T/NGNA #### [facility] [address] [place] [address] Dr. Peri Monaco Neisseria gonorrhoeae, ANDREW Negative Normal Negative [facility] Comment on above: Performed By: #### C T/NGNA #### [facility] [address] [place] [address] Dr. Peri Monaco VAGINITIS/VAGINOSIS DNA PROB Jeffy 02-17-2022 Sehila species Negative Normal Negative [facility] Comment on above: Performed By: #### V AGINT #### [facility] [address] [place] [address] Dr. Peri Monaco Gardnerella vaginalis Negative Normal Negative [facility] Comment on above: Performed By: #### V AGINT #### [facility] [address] [address] [address] Peri Monaco Trichomonas vaginalis Negative Normal Negative [facility] Comment on above: Performed By: #### V AGINT #### [facility] [address] [address] [address] Peri Mnoaco Provider Letteron 10-22-2020 Provider Letter October 22, 2020 October 22, 2020 MIRACLE, BERENICE A [address] [place] [address] MIRACLE, BERENICE A 1990 Dear Berenice Robert, [...] appreciate your understanding. Sincerely, [facility] [address], [place] [address] [facility] Vital Signs Date Time Vital Sign Value Performing Clinician Facility 01-08-2023 15:20-0500 Body height 167.64 cm Fany Oneill Other [facility] Other 01-08-2023 15:20-0500 Body mass index (BMI) [Ratio] 31.31 kg/m2 Fany Oneill Other [facility] Other 01-08-2023 15:20-0500 Body temperature 99.7 [degF] Fany Oneill Other [facility] Other 01-08-2023 15:20-0500 Body weight 88 kg Fany Oneill Other [facility] Other 01-08-2023 15:20-0500 Respiratory rate 20 /min Fany Oneill Other [facility] Other 01-08-2023 15:20-0500 SaO2% (BldA) [Mass fraction] 98 % Fany Oneill Other [facility] Other 06-25-2022 14:20-0400 Body height 167.64 cm Angelina Gómez Other [facility] Other 06-25-2022 14:20-0400 Body mass index (BMI) [Ratio] 32.28 kg/m2 Angelina Gómez Other [facility] Other 06-25-2022 14:20-0400 Body temperature 98 [degF] Angelina Gómez Other [facility] Other 06-25-2022 14:20-0400 Body weight 90.72 kg Angelina Gómez Other [facility] Other 06-25-2022 14:20-0400 Diastolic blood pressure 93 mm[Hg] Angelina Gómez Other [facility] Other 06-25-2022 14:20-0400 Respiratory rate 18 /min Angelina Gómez Other [facility] Other 06-25-2022 14:20-0400 SaO2% (BldA) [Mass fraction] 98 % Angelina Gómez Other [facility] Other 06-25-2022 14:20-0400 Systolic blood pressure 162 mm[Hg] Angelina Gómez Other [facility] Other Encounters Encounter Date Encounter Type Care Provider Facility Start: 08-01-2023 End: 08-01-2023 ambulatory FIDENCIO THEODORE Not Available Start: 07-11-2023 End: 07-11-2023 ambulatory Fidencio Theodore Facility:[facility] Start: 07-11-2023 End: 07-11-2023 Departed Referred Fidencio Theodore Work Phone: [facility] Start: 07-11-2023 End: 07-11-2023 ambulatory FIDENCIO THEODORE [facility] Work Phone: Start: 07-04-2023 End: 07-04-2023 ambulatory FIDENCIO THEODORE Not Available Start: 01-08-2023 End: 01-08-2023 ambulatory Fany Oneill Other [facility] Other Start: 01-08-2023 Office outpatient vi sit 15 minutes Fany Oneill [facility] Start: 06-25-2022 End: 06-25-2022 ambulatory Angelina Gómez Other [facility] Other Start: 06-25-2022 Office outpatient ne w 30 minutes Angelina Gómez [facility] Start: 04-13-2022 Encounter for other preprocedural examination DR FIDENCIO THEODORE [facility] Start: 04-12-2022 End: 04-12-[address] NONE LISTED REQUEST Facility:[facility] Start: 04-08-[address] NONE LISTED REQUEST Facility:[facility] Start: 04-07-2022 End: 04-08-[address] NONE LISTED REQUEST Facility:[facility] Start: 04-07-2022 End: 04-08-2022 Encounter for other preprocedural examination DR NONE LISTED REQUEST Facility:[facility] Start: 03-06-2022 End: 03-07-[address] NONE LISTED REQUEST Facility:[facility] Start: 02-15-2022 End: 02-15-[address] NONE LISTED REQUEST Facility: Payers Date Payer Category Payer Self-pay 1990 Unknown [id number] 2.16.84 [id number] 1990 Unknown [id number] 2.16.84 [id number] 1990 Unknown [id number] 2.16.84 [id number] 1990 Unknown [id number] 2.16.84 [id number] 1990 Unknown [id number] 2.16.84 [id number] 1991 Unknown [id number] 2.16.84 [id number] 1991 Unknown [id number] 2.16.84 [id number] 1991 Unknown [id number] 2.16.84 [id number] 1959 Unknown [id number] Social History Date Type Detail Facility Sex Assigned At [facility] Other Start: 1990 Sex Assigned At Female F [facility] Evaluation note 01-08-2023 Note Date & Type [...] no improvement in 2 to 3 days [facility] Other Evaluation note 06-25-2022 Note Date & [...] treatment plan. Patient left in stable condition. [facility] Other Clinical Note 04-12-2022 Note Date & Type Note Facility 04-12-2022 Note OPERATIVE NOTE OPERATION DATE: 04/12/2022 PROCEDURE: Joslyn endometrial ablation with hysteroscopy. PREOPERATIVE DIAGNOSIS: Menorrhagia. POSTOPERATIVE DIAGNOSIS: Menorrhagia. ANESTHESIA: General. SURGEON: Fidencio Theodore D.O. DOOR PERSON: None. FINDINGS: Normal appearing cavity. No gross [...] taken to recovery in stable condition. [facility] Evaluation note Note Date & Type Note Facility Evaluation note No assessment information availa [facility] Work Phone: History general Narrative - Reported Note Date & Type Note Facility History general Narrative - Reported Type Surgical History ablasion Surgical History tubal ligation Surgical History tonsillectomy Surgical History lithotripsy Hospitalization History see above [facility] Other Summary Purpose Family History No Family History Records Found Relationship Condition Age at Onset Recorded Date/T suzette Not Specified Hypertension Unknown Advance Directives No Advanced Directives Records FoundNo Advanced Directives Records FoundNo Advanced Directives Records FoundNo Advanced Directives Records Found Additional Source Comments INFORMATION SOURCE (unrecogn ized section and content) DATE CREATED AUTHOR 10/23/2020 [place] [facility] DATE CREATED AUTHOR AUTHOR'S ORGANIZ ATION 04/13/2022 [facility] DATE CREATED AUTHOR AUTHOR'S ORGANIZ ATION 07/17/2023 [facility] DATE CREATED AUTHOR AUTHOR'S ORGANIZ ATION 08/03/2023 [facility] EPIC REASON FOR VISIT (unrecogniz ed section and content) COUGH, CONGESTIONPRESSURE IN HEAD, CAN'T HEAR OUT OF RIGHT EAR, AND CONGESTION Care Teams (unrecognized sec tion and content) Team Status: Inactive Member Role Status Dates Fidencio Theodore Attending Provider Active Start: [place] 2023 End: July 11, 2023 Goals (unrecognized [...] BE BASED ON THE PRIMARY CLINICAL RECORDS. [facility] provides no warranty or guarantee of the accuracy or completeness of information in this document.
[2023-08-21 08:33] LABS: Basophils Absolute Auto 0.1 10^3/uL (0.0-0.1); Basophils Percent Auto 0.5 % (0.2-2.0); Eosinophils Absolute Auto 0.3 10^3/uL (0.0-0.7); Eosinophils Percent Auto 3.4 % (0.9-7.0); Hematocrit 37.3 % (36.0-48.0); Hemoglobin 12.6 g/dL (12.0-16.0); Immature Granulocytes Abs Auto 0.02 10^3/uL (0.00-0.03); Immature Granulocytes Pct Auto 0.2 % (0.0-0.5); Lymphocytes Absolute Auto 3.2 10^3/uL (1.2-3.8); Lymphocytes Percent Auto 34.2 % (20.5-60.0); Mean Corpuscular HGB Conc 33.8 g/dL (29.9-35.2); Mean Corpuscular Hemoglobin 29.3 pg (26.7-34.0); Mean Corpuscular Volume 86.7 fL (81.0-99.0); Mean Platelet Volume 10.6 fL (9.5-13.5); Monocytes Absolute Auto 0.7 10^3/uL (0.3-0.8); Monocytes Percent Auto 7.5 % (1.7-12.0); Neutrophils Percent Auto 54.2 % (43.0-75.0); Platelet Count 350 10^3/uL (150-450); Red Cell Distribution Width 12.1 % (11.0-15.0); White Blood Count 9.3 10^3/uL (4.0-11.0)
[2023-08-21 08:48] LABS: INR 0.97; Partial Thromboplastin Time 32.1 sec (22.3-36.2); Prothrombin Time 10.3 sec (9.0-11.6)
[2023-08-21 08:55] LABS: Alanine Aminotransferase 23 U/L (14-59); Albumin Globulin Ratio 1.1; Alkaline Phosphatase 81 U/L (46-116); Anion Gap 12.9; Aspartate Amino Transferase 16 U/L (15-37); BUN Creatinine Ratio 16.3; Bilirubin Direct 0.1 mg/dL (0.0-0.2); Bilirubin Total 0.3 mg/dL (0.2-1.0); Calcium 8.7 mg/dL (8.5-10.1); Carbon Dioxide 27.7 mmol/L (21.0-32.0); Chloride 104 mmol/L (98-107); Estimated GFR (African America >60 (>=60); Estimated GFR (Non-African Ame >60 (>=60); Globulin 3.6 g/dL; Glucose 91 mg/dL (74-106); Potassium 3.6 mmol/L (3.5-5.1); Sodium 141 mmol/L (136-145); Total Protein 7.6 g/dL (6.4-8.2)
== END 2023-08-21 07:48 | disposition home or self-care (01) ==
LOC: PST 07:49
PROVIDERS: Visit Provider Obstetrics & Gynecology
DX: Z01.812 Encounter for preprocedural laboratory examination (principal); N92.0 Excessive and frequent menstruation with regular cycle; R10.2 Pelvic and perineal pain; N94.6 Dysmenorrhea, unspecified; N94.10 Unspecified dyspareunia
CPT/HCPCS: 80048; 80076; 85025; 85610; 85730; 86850; 86900; 86901

== ENCOUNTER 2023-08-29 06:13 | Day surgery (SDC) | payer BC, SELFPAY ==
[2023-08-21 08:26] VITALS: BP 120/84; PULSE 62; TEMP 36.3; O2SAT 99; BMI 33.2
[2023-08-29] VITALS (13 sets, daily range): BP systolic 130–160; BP diastolic 78–97; PULSE 71–97; TEMP 36.2–36.7; O2SAT 95–100; BMI 33.3
--- OUTSIDE RECORDS SUMMARY | 2023-08-29 06:16 | XMS_ITS | CCD ---
Author Organization [facility] Care Team Providers Care Partner Integration Planner Name Role Phone REQUEST, DR NONE LISTED [...] Test Name Value Interpretation Reference Range Facility [facility] 07-11-2023 L Specimen: [id number] Received: 07/12/23 Status: VIN Sweet Num: [id number] Spec Type: Surgical Subm Dr: Fidencio Theodore Tissues: A Endometrium - Biopsy (EMBX) Procedures: HE/2, Gross/Micro L4 Age/ Patient Sex Location Account Attending Physician Berenice Robert 32/F LABELL [id number] Fidencio Theodore SPEC NUM: [id number] RECD: 07/12/23 STATUS: VIN SWEET NUM: [id number] RAHEEM: 07/11/23-[address] [facility] [address]: Fidencio Theodore ENTERED: 07/12/23-12[address] [facility] [address]: Lois,Lab SPEC TYPE: Surgical DEPT: RODRIGO [...] history: Menorrhagia with irregular cycle CPT Codes 11336 Specimen: [id number] Received: 07/12/23 [facility] [id number] Spec Type: Surgical Subm Dr: Fidencio Theodore Tissues: A Endometrium - Biopsy (EMBX) Procedures: HE/2, Gross/Micro L4 Patient: Berenice Robert [id number] (Continued) Signed (signature on file) Saul-Kavon Monaco MD 07/15/[address] [facility] COVID + FLU Quick Testingon 06-25-2022 SARS-CoV-2 (COVID-19) RNA ANDREW+probe Ql (Unsp spec) Negative [facility] Other COVID + FLU Quick Testing Negative [facility] Other Quick Strepon 06-25-2022 S. pyogenes Org specific cx Ql (Throat) Negative [facility] Other Quick Strep [facility] Other CBC AUTO DIFFon 04-12-2022 BASO # 0.1 103/ul Normal 0.0-0.1 [facility] Comment on above: Performed By: #### C BC #### [facility] [address] [place] [address] Dr. Peri Monaco Basophils/100 WBC (Bld) 0.5 % Normal 0.2-2.0 [facility] Comment on above: Performed By: #### C BC #### [facility] [address] [place] [address] Dr. Peri Monaco EO # 0.3 103/ul Normal 0.0-0.7 [facility] Comment on above: Performed By: #### C BC #### [facility] [address] [place] [address] Dr. Peri Monaco Eosinophils/100 WBC (Bld) 3.0 % Normal 0.9-7.0 [facility] Comment on above: Performed By: #### C BC #### [facility] [address] [place] [address] Dr. Peri Monaco Erythrocyte distribution width (RBC) [Ratio] 12.5 % Normal 11.0-15.0 [facility] Comment on above: Performed By: #### C BC #### [facility] [address] [place] [address] Dr. Peri Monaco Hematocrit (Bld) [Volume fraction] 40.2 % Normal 36.0-48.0 [facility] Comment on above: Performed By: #### C BC #### [facility] [address] [place] [address] Dr. Peri Monaco Hemoglobin (Bld) [Mass/Vol] 13.7 g/dL Normal 12.0-16.0 [facility] Comment on above: Performed By: #### C BC #### [facility] [address] [place] [address] Dr. Peri Monaco IG # 0.04 10e3/ul Critically high 0.00-0.03 [facility] Comment on above: Performed By: #### C BC #### [facility] [address] [place] [address] Dr. Peri Monaco IG % 0.3 % Normal 0.0-0.5 [facility] Comment on above: Performed By: #### C BC #### [facility] [address] [place] [address] Dr. Peri Monaco LYMPH # 3.4 103/ul Normal 1.2-3.8 [facility] Comment on above: Performed By: #### C BC #### [facility] [address] [place] [address] Dr. Peri Monaco Lymphocytes/100 WBC (Bld) 29.8 % Normal 20.5-60.0 [facility] Comment on above: Performed By: #### C BC #### [facility] [address] [place] [address] Dr. Peri Monaco MANUAL DIFF REQ NO Normal [facility] Comment on above: Performed By: #### C BC #### [facility] [address] [place] [address] Dr. Peri Monaco MCH (RBC) [Entitic mass] 28.9 pg Normal 26.7-34.0 [facility] Comment on above: Performed By: #### C BC #### [facility] [address] [place] [address] Dr. Peri Monaco MCHC (RBC) [Mass/Vol] 34.1 g/dL Normal 29.9-35.2 [facility] Comment on above: Performed By: #### C BC #### [facility] [address] [place] [address] Dr. Peri Monaco MCV (RBC) [Entitic vol] 84.8 fL Normal 81.0-99.0 [facility] Comment on above: Performed By: #### C BC #### [facility] [address] [place] [address] Dr. Peri Monaco MONO # 0.7 103/ul Normal 0.3-0.8 [facility] Comment on above: Performed By: #### C BC #### [facility] [address] [place] [address] Dr. Peri Monaco Monocytes/100 WBC (Bld) 5.8 % Normal 1.7-12.0 [facility] Comment on above: Performed By: #### C BC #### [facility] [address] [place] [address] Dr. Peri Monaco NEUT # 7.0 103/ul Critically high 1.4-6.5 [facility] Comment on above: Performed By: #### C BC #### [facility] [address] [place] [address] Dr. Peri Monaco Neutrophils/100 WBC (Bld) 60.6 % Normal 43.0-75.0 [facility] Comment on above: Performed By: #### C BC #### [facility] [address] [place] [address] Dr. Peri Monaco Platelet mean volume (Bld) [Entitic vol] 10.7 fL Normal 9.5-13.5 [facility] Comment on above: Performed By: #### C BC #### [facility] [address] [place] [address] Dr. Peri Monaco PLT 368 103/ul Normal 150-450 [facility] Comment on above: Performed By: #### C BC #### [facility] [address] [place] [address] Dr. Peri Monaco RBC 4.74 106/ul Normal 4.20-5.40 [facility] Comment on above: Performed By: #### C BC #### [facility] [address] [place] [address] Dr. Peri Monaco WBC 11.5 103/ul Critically high 4.0-11.0 [facility] Comment on above: Performed By: #### C BC #### [facility] [address] [place] [address] Dr. Peri Monaco PREG HCG QUALon 04-12-2022 , QUAL Negative Normal NEGATIVE [facility] Comment on above: Performed By: #### P REG #### [facility] [address] [place] [address] Dr. Peri Monaco CBC AUTO DIFFon 03-06-2022 BASO # 0.1 103/ul Normal 0.0-0.1 [facility] Comment on above: Performed By: #### C BC #### [facility] [address] [place] [address] Dr. Peri Monaco Basophils/100 WBC (Bld) 0.6 % Normal 0.2-2.0 [facility] Comment on above: Performed By: #### C BC #### [facility] [address] [place] [address] Dr. Peri Monaco EO # 0.3 103/ul Normal 0.0-0.7 [facility] Comment on above: Performed By: #### C BC #### [facility] [address] [place] [address] Dr. Peri Monaco Eosinophils/100 WBC (Bld) 2.9 % Normal 0.9-7.0 [facility] Comment on above: Performed By: #### C BC #### [facility] [address] [place] [address] Dr. Peri Monaco Erythrocyte distribution width (RBC) [Ratio] 12.0 % Normal 11.0-15.0 [facility] Comment on above: Performed By: #### C BC #### [facility] [address] [place] [address] Dr. Peri Monaco Hematocrit (Bld) [Volume fraction] 37.6 % Normal 36.0-48.0 [facility] Comment on above: Performed By: #### C BC #### [facility] [address] [place] [address] Dr. Peri Monaco Hemoglobin (Bld) [Mass/Vol] 13.5 g/dL Normal 12.0-16.0 [facility] Comment on above: Performed By: #### C BC #### [facility] [address] [place] [address] Dr. Peri Monaco IG # 0.03 10e3/ul Normal 0.00-0.03 [facility] Comment on above: Performed By: #### C BC #### [facility] [address] [place] [address] Dr. Peri Monaco IG % 0.3 % Normal 0.0-0.5 [facility] Comment on above: Performed By: #### C BC #### [facility] [address] [place] [address] Dr. Peri Monaco LYMPH # 2.7 103/ul Normal 1.2-3.8 [facility] Comment on above: Performed By: #### C BC #### [facility] [address] [place] [address] Dr. Peri Monaco Lymphocytes/100 WBC (Bld) 26.6 % Normal 20.5-60.0 [facility] Comment on above: Performed By: #### C BC #### [facility] [address] [place] [address] Dr. Peri Monaco MANUAL DIFF REQ NO Normal [facility] Comment on above: Performed By: #### C BC #### [facility] [address] [address] [address] Peri Monaco MCH (RBC) [Entitic mass] 28.7 pg Normal 26.7-34.0 [facility] Comment on above: Performed By: #### C BC #### [facility] [address] [place] [address] Dr. Peri Monaco MCHC (RBC) [Mass/Vol] 35.9 g/dL Critically high 29.9-35.2 [facility] Comment on above: Performed By: #### C BC #### [facility] [address] [place] [address] Dr. Peri Monaco MCV (RBC) [Entitic vol] 79.8 fL Critically low 81.0-99.0 [facility] Comment on above: Performed By: #### C BC #### [facility] [address] [place] [address] Dr. Peri Monaco MONO # 0.7 103/ul Normal 0.3-0.8 [facility] Comment on above: Performed By: #### C BC #### [facility] [address] [place] [address] Dr. Peri Monaco Monocytes/100 WBC (Bld) 6.5 % Normal 1.7-12.0 [facility] Comment on above: Performed By: #### C BC #### [facility] [address] [place] [address] Dr. Peri Monaco NEUT # 6.5 103/ul Normal 1.4-6.5 [facility] Comment on above: Performed By: #### C BC #### [facility] [address] [place] [address] Dr. Peri Monaco Neutrophils/100 WBC (Bld) 63.1 % Normal 43.0-75.0 [facility] Comment on above: Performed By: #### C BC #### [facility] [address] [place] [address] Dr. Peri Monaco Platelet mean volume (Bld) [Entitic vol] 10.2 fL Normal 9.5-13.5 [facility] Comment on above: Performed By: #### C BC #### [facility] [address] [address] [address] Peri Monaco PLT 377 103/ul Normal 150-450 [facility] Comment on above: Performed By: #### C BC #### [facility] [address] [place] [address] Dr. Peri Monaco RBC 4.71 106/ul Normal 4.20-5.40 [facility] Comment on above: Performed By: #### C BC #### [facility] [address] [place] [address] Dr. Peri Monaco WBC 10.2 103/ul Normal 4.0-11.0 [facility] Comment on above: Performed By: #### C BC #### [facility] [address] [place] [address] Dr. Peri Monaco FREE T4on 03-06-2022 Free T4 [Mass/Vol] 0.76 ng/dL Normal 0.76-1.46 [facility] Comment on above: Performed By: #### F T4 #### [facility] [address] [place] [address] Dr. Peri Monaco GLYCOHEMOGLOBIN A1Con 2022 ADA RECOMMENDATION SEE BELOW Normal [facility] Comment on above: Result Comment: ADA RECOMMENDED LIMIT 4.0 - 6.0 ADA THERAPEUTIC TARGET < 7.0 ACTION SUGGESTED > 7.0 Performed By: #### C BC #### [facility] [address] [place] [address] Dr. Peri Monaco Glucose [Mass/Vol] 108 mg/dL Normal [facility] Comment on above: Performed By: #### C BC #### [facility] [address] [place] [address] Dr. Peri Monaco HbA1c (Bld) [Mass fraction] 5.4 % Normal 4.5-6.2 [facility] Comment on above: Performed By: #### C BC #### [facility] [address] [place] [address] Dr. Peri Monaco PROTIMEon 03-06-2022 INR Coag (PPP) [Relative time] 0.95 {INR} Normal [facility] Comment on above: Performed By: #### P T, PTT #### [facility] [address] [place] [address] Dr. Peri Monaco INR GUIDELINES SEE BELOW Normal [facility] Comment on above: Result Comment: WILLY RED INR: 2.0 - 3.0 CONDITIONS NOT LISTED BELOW 2.5 - 3.5 FOR PROSTHETIC HEART VALVE REPLACEMENT 2.5 - 3.5 RECURRENT THROMBOSIS Performed By: #### P T, PTT #### [facility] [address] [place] [address] Dr. Peri Monaco PT Coag (PPP) [Time] 10.3 s Normal 9.0-11.6 [facility] Comment on above: Performed By: #### P T, PTT #### [facility] [address] [place] [address] Dr. Peri Monaco PTTon 03-06-2022 aPTT Coag (Bld) [Time] 34.8 s Normal 22.3-36.2 [facility] Comment on above: Performed By: #### P T, PTT #### [facility] [address] [place] [address] Dr. Peri Monaco TSHon 03-06-2022 TSH 1.516 uIU/mL Normal 0.358-3.740 [facility] Comment on above: Performed By: #### C BC #### [facility] [address] [place] [address] Dr. Peri Monaco US PELVIS AND TRANSVAGon [...] by: YOLANDA DELCID Date: 2022-03-06 11:40 Normal [facility] PAP ACOG PANEL 2: 30 to 65on 02-28-2022 . . Normal [facility] Comment on above: Result Comment: Perf ormed at: WB Performed By: #### [id number] #### [facility] [address] [address] [address] Peri Monaco Age Gdln ACOG Testing 30-65 Normal [facility] Comment on above: Performed By: #### [id number] #### [facility] [address] [place] [address] Dr. Peri Monaco DIAGNOSIS: Comment Normal [facility] Comment on above: Result Comment: NEGA TIVE FOR INTRAEPITHELIAL LESION OR MALIGNANCY. FUNGAL ORGANISMS MORPHOLOGICALLY CONSISTENT WITH SHEILA SPECIES ARE PRESENT. Performed at: WB Performed By: #### [id number] #### [facility] [address] [address] [address] Peri Monaco HPV Aptima Negative Normal Negative [facility] Comment on above: Result Comment: This nucleic acid amplification test detects fourteen high-risk HPV types (16,18,31,33,35,39,45,51,52,56,58,59,66,68) without differentiation. Performed at: =G Performed By: #### [id number] #### [facility] [address] [address] [address] Peri Monaco HPV Genotype Reflex Comment Normal [facility] Comment on above: Result Comment: Crit eria not met, HPV Genotype not performed. Performed at: WB Performed By: #### [id number] #### [facility] [address] [address] [address] Peri Monaco Methodology: Comment Normal [facility] Comment on above: Result Comment: This liquid based ThinPrep(R) pap test was screened with the use of an image guided system. Performed at: WB Performed By: #### [id number] #### [facility] [address] [place] [address] Dr. Peri Monaco Note: Comment Normal [facility] Comment on above: Result Comment: The Pap smear is a screening test designed to aid in the detection of premalignant and malignant conditions of the uterine cervix. It is not a diagnostic procedure and should not be used as the sole means of detecting cervical cancer. Both false-positive and false-negative reports do occur. . Performed at: WB Performed By: #### [id number] #### [facility] [address] [place] [address] Dr. Peri Monaco Performed by: Comment Normal [facility] Comment on above: Result Comment: Jozef Aguirre Process Eng (ASCP) Performed at: WB Performed By: #### [id number] #### [facility] [address] [place] [address] Dr. Peri Monaco Specimen adequacy: Comment Normal [facility] Comment on above: Result Comment: Sati sfactory for evaluation. Endocervical and/or squamous metaplastic cells (endocervical component) are present. Performed at: WB Performed By: #### [id number] #### [facility] [address] [place] [address] Dr. Peri Monaco CHLAMYDIA/GONOCOCCUS ANDREW (SW AB/URINE/PAPon 02-18-2022 Chlamydia trachomatis, ANDREW Negative Normal Negative [facility] Comment on above: Performed By: #### C T/NGNA #### [facility] [address] [place] [address] Dr. Peri Monaco Neisseria gonorrhoeae, ANDREW Negative Normal Negative [facility] Comment on above: Performed By: #### C T/NGNA #### [facility] [address] [place] [address] Dr. Peri Monaco VAGINITIS/VAGINOSIS DNA PROB Jeffy 02-17-2022 Sheila species Negative Normal Negative [facility] Comment on above: Performed By: #### V AGINT #### [facility] [address] [place] [address] Dr. Peri Monaco Gardnerella vaginalis Negative Normal Negative [facility] Comment on above: Performed By: #### V AGINT #### [facility] [address] [address] [address] Peri Monaco Trichomonas vaginalis Negative Normal Negative [facility] Comment on above: Performed By: #### V AGINT #### [facility] [address] [address] [address] Peri Monaco Provider Letteron 10-22-2020 Provider Letter October 22, 2020 October 22, 2020 MIRACLE, BERENICE A [address] [place] [address] MIRACLE, BERENICE A 1990 Dear Berenice Robert, [...] appreciate your understanding. Sincerely, [facility] [address], [place] [address] [facility] Vital Signs Date Time Vital Sign Value Performing Clinician Facility 01-08-2023 15:20-0500 Body height 167.64 cm Fany Oneill Other [facility] Other 01-08-2023 15:20-0500 Body mass index (BMI) [Ratio] 31.31 kg/m2 Fany Oneill Other [facility] Other 01-08-2023 15:20-0500 Body temperature 99.7 [degF] Fany Oneill Other [facility] Other 01-08-2023 15:20-0500 Body weight 88 kg Fany Oneill Other [facility] Other 01-08-2023 15:20-0500 Respiratory rate 20 /min Fany Oneill Other [facility] Other 01-08-2023 15:20-0500 SaO2% (BldA) [Mass fraction] 98 % Fany Oneill Other [facility] Other 06-25-2022 14:20-0400 Body height 167.64 cm Angelina Gómez Other [facility] Other 06-25-2022 14:20-0400 Body mass index (BMI) [Ratio] 32.28 kg/m2 Angelina Gómez Other [facility] Other 06-25-2022 14:20-0400 Body temperature 98 [degF] Angelina Gómez Other [facility] Other 06-25-2022 14:20-0400 Body weight 90.72 kg Angelina Gómez Other [facility] Other 06-25-2022 14:20-0400 Diastolic blood pressure 93 mm[Hg] Angelina Gómez Other [facility] Other 06-25-2022 14:20-0400 Respiratory rate 18 /min Angelina Gómez Other [facility] Other 06-25-2022 14:20-0400 SaO2% (BldA) [Mass fraction] 98 % Angelina Gómez Other [facility] Other 06-25-2022 14:20-0400 Systolic blood pressure 162 mm[Hg] Angelina Gómez Other [facility] Other Encounters Encounter Date Encounter Type Care Provider Facility Start: 08-01-2023 End: 08-01-2023 ambulatory FIDENCIO THEODORE Not Available Start: 07-11-2023 End: 07-11-2023 ambulatory Fidencio Theodore Facility:[facility] Start: 07-11-2023 End: 07-11-2023 Departed Referred Fidencio Theodore Work Phone: [facility] Start: 07-11-2023 End: 07-11-2023 ambulatory FIDENCIO THEODORE [facility] Work Phone: Start: 07-04-2023 End: 07-04-2023 ambulatory FIDENCIO THEODORE Not Available Start: 01-08-2023 End: 01-08-2023 ambulatory Fany Oneill Other [facility] Other Start: 01-08-2023 Office outpatient vi sit 15 minutes Fany Oneill [facility] Start: 06-25-2022 End: 06-25-2022 ambulatory Angelina Gómez Other [facility] Other Start: 06-25-2022 Office outpatient ne w 30 minutes Angelina Gómez [facility] Start: 04-13-2022 Encounter for other preprocedural examination DR FIDENCIO THEODORE [facility] Start: 04-12-2022 End: 04-12-[address] [...] Date Payer Category Payer Self-pay 1990 Unknown [id number] 2.16.84 [id number] 1990 Unknown [id number] 2.16.84 [id number] 1990 Unknown [id number] 2.16.84 [id number] 1990 Unknown [id number] 2.16.84 [id number] 1990 Unknown [id number] 2.16.84 [id number] 1991 Unknown [id number] 2.16.84 [id number] 1991 Unknown [id number] 2.16.84 [id number] 1991 Unknown [id number] 2.16.84 [id number] 1958 Unknown [id number] Social History Date Type Detail Facility Sex Assigned At [facility] Other Start: 1990 Sex Assigned At Female F [facility] Evaluation note 01-08-2023 Note Date & Type [...] no improvement in 2 to 3 days [facility] Other Evaluation note 06-25-2022 Note Date & [...] treatment plan. Patient left in stable condition. [facility] Other Clinical Note 04-12-2022 Note Date & Type Note Facility 04-12-2022 Note OPERATIVE NOTE OPERATION DATE: 04/12/2022 PROCEDURE: Joslyn endometrial ablation with hysteroscopy. PREOPERATIVE DIAGNOSIS: Menorrhagia. POSTOPERATIVE DIAGNOSIS: Menorrhagia. ANESTHESIA: General. SURGEON: Fidencio Theodore D.O. BASEBALL GLOVE SHAPER: None. FINDINGS: Normal appearing cavity. No gross [...] taken to recovery in stable condition. [facility] Evaluation note Note Date & Type Note Facility Evaluation note No assessment information availa [facility] Work Phone: History general Narrative - Reported Note Date & Type Note Facility History general Narrative - Reported Type Surgical History ablasion Surgical History tubal ligation Surgical History tonsillectomy Surgical History lithotripsy Hospitalization History see above [facility] Other Summary Purpose Family History No Family History Records Found Relationship Condition Age at Onset Recorded Date/T suzette Not Specified Hypertension Unknown Advance Directives No Advanced Directives Records FoundNo Advanced Directives Records FoundNo Advanced Directives Records FoundNo Advanced Directives Records Found Additional Source Comments INFORMATION SOURCE (unrecogn ized section and content) DATE CREATED AUTHOR 10/23/2020 [place] [facility] DATE CREATED AUTHOR AUTHOR'S ORGANIZ ATION 04/13/2022 [facility] DATE CREATED AUTHOR AUTHOR'S ORGANIZ ATION 07/17/[address] [facility] DATE CREATED AUTHOR AUTHOR'S ORGANIZ ATION 08/03/2023 [facility] EPIC REASON FOR VISIT (unrecogniz [...] BE BASED ON THE PRIMARY CLINICAL RECORDS. [facility]. provides no warranty or guarantee of the accuracy or completeness of information in this document.
[2023-08-29 06:23] LABS: Basophils Absolute Auto 0.1 10^3/uL (0.0-0.1); Basophils Percent Auto 0.6 % (0.2-2.0); Eosinophils Absolute Auto 0.3 10^3/uL (0.0-0.7); Hematocrit 39.5 % (36.0-48.0); Hemoglobin 13.4 g/dL (12.0-16.0); Immature Granulocytes Abs Auto 0.02 10^3/uL (0.00-0.03); Immature Granulocytes Pct Auto 0.2 % (0.0-0.5); Lymphocytes Percent Auto 40.1 % (20.5-60.0); Mean Corpuscular HGB Conc 33.9 g/dL (29.9-35.2); Mean Corpuscular Hemoglobin 29.6 pg (26.7-34.0); Mean Corpuscular Volume 87.4 fL (81.0-99.0); Mean Platelet Volume 10.8 fL (9.5-13.5); Monocytes Absolute Auto 0.6 10^3/uL (0.3-0.8); Monocytes Percent Auto 5.8 % (1.7-12.0); Neutrophils Percent Auto 50.3 % (43.0-75.0); Platelet Count 334 10^3/uL (150-450); Red Blood Count 4.52 10^6/uL (4.20-5.40); Red Cell Distribution Width 12.2 % (11.0-15.0); White Blood Count 9.9 10^3/uL (4.0-11.0)
[2023-08-29 06:45] LABS: HCG Quantitative <1 mIU/mL
[2023-08-29] MEDS: CEFAZOLIN SODIUM/DEXTROSE,ISO 2 GM/50 ML PIGGYBACK IV ×2 (07:40→15:00)
[2023-08-29] MEDS: LACTATED RINGER'S SOLUTION 1,000 ML 50 ML IV (09:08)
--- NOTE | 2023-08-29 09:51 | PM.ONB ---
Brief Operative Note Date of procedure: 08/29/23 Pre-op diagnosis general: menorrhagia, pelvic pain, dysmenorrhea Post-op diagnosis: same as pre-op Procedure: NAME OF PROCEDURE: ? Robotic assisted laparoscopic hysterectomy with cystoscopy PROCEDURE:? The patient was taken back to the operating room, where she was prepped and draped in the normal sterile fashion after being placed in the dorsal lithotomy position.? Patient?s anesthesia was found to be adequate.? Surgical timeout was performed using two patient identifiers.? SCDs were on and in place.? Two grams of Ancef were given prior to the surgery.? Sterile Mcdonald catheter was inserted.? Standard size VCare was secured to the uterine cervix and the surgeon changed gloves.? Attention then was turned to the patient's abdomen, where a supraumbilical incision was then made.? Two S retractors were used to identify the patient?s fascia.? The fascia was then tented up using Booker clamps and the patient?s fascia was incised sharply.? Patient?s abdomen was identified and entered bluntly.? The patient had the trocar placed and a pneumoperitoneum was obtained.? Approximately 4 liters of CO2 gas was used.? The camera was then placed through the trocar.? At this time, two robot trocars were placed in the patient?s left and right side, two hand widths from the midline, and this was placed under direct visualization.? Please note absent tubes were seen. The uterine ovarian ligament was identified and transected and ligated using the vessel sealer? The vessel sealer was carried down serially to the broad ligament, to the area of the bladder flap, which was then created anteriorly, and the uterine arteries were skeletonized and sealed using the vessel sealer.? The colpotomy was made using the monopolar cautery on cut, and this was carried circumferentially, posteriorly to anteriorly, until the uterus was amputated.? The specimen was then removed intact through the vagina, without difficulty.? The vagina was then closed using two running V-Loc in a non-lock fashion.? The robot was undocked.? The abdomen was desufflated.? The skin defects were closed using 4-0 Vicryl.? Please note, the fascia was closed using 0 Vicryl.? Sponge, lap and needle counts were correct x2.? Patient was taken to recovery room in stable condition.? The patient was awakened by Anesthesia first.? Patient tolerated procedure well.?? Anesthesia: GETA Surgeon: Kurtis Theodore Floor Scrubber: Darleen Phelps Estimated blood loss (mL): 50 Pathology: other (uterus and cervix) Condition: stable Disposition: PACU Urinary Catheter Management Urinary Catheter Management Urethral: Cath placed during this visit: no
[2023-08-29] MEDS: HYDROMORPHONE HCL 0.5 MG/0.5 ML SYRINGE IV ×2 (10:29→10:43)
[2023-08-29] MEDS: KETOROLAC TROMETHAMINE 30 MG/ML VIAL IVP (10:32)
--- NOTE | 2023-08-29 10:55 | PC.NURSE ---
Peripad changed for scant amount light red drainage
--- NOTE | 2023-08-29 11:01 | PC.NURSE ---
Medicated with Dilaudid as ordered; peripad dry
--- NOTE | 2023-08-29 11:06 | PC.NURSE ---
Peripad dry; medicated with Toradol as ordered
--- NOTE | 2023-08-29 11:09 | PC.NURSE ---
Medicated with Dilaudid IV as ordered; peripad dry
[2023-08-29 16:20] LABS: Hematocrit 39.8 % (36.0-48.0); Hemoglobin 13.6 g/dL (12.0-16.0); Mean Corpuscular HGB Conc 34.2 g/dL (29.9-35.2); Mean Corpuscular Hemoglobin 29.6 pg (26.7-34.0); Mean Corpuscular Volume 86.5 fL (81.0-99.0); Mean Platelet Volume 11.2 fL (9.5-13.5); Platelet Count 294 10^3/uL (150-450); Red Cell Distribution Width 11.9 % (11.0-15.0); White Blood Count 15.1 10^3/uL (4.0-11.0)
[2023-08-29 16:45] LABS: Segmented Neut Absolute Manual 14.49 10^3/uL (1.4-6.5)
== END 2023-08-29 17:06 | disposition home or self-care (01) ==
LOC: SURGOUT 09:54 → MS 11:51
PROVIDERS: Visit Provider Obstetrics & Gynecology
PROC: (CPT 00840; principal; 2023-08-29 07:30)
DX: N92.0 Excessive and frequent menstruation with regular cycle (principal); R10.2 Pelvic and perineal pain; N94.6 Dysmenorrhea, unspecified; N94.10 Unspecified dyspareunia; N72 Inflammatory disease of cervix uteri; N88.8 Other specified noninflammatory disorders of cervix uteri; Z98.51 Tubal ligation status; I10 Essential (primary) hypertension; K21.9 Gastro-esophageal reflux disease without esophagitis
CPT/HCPCS: 00840; 58570; 36415; 84702; 85007; 85025; 85027; 88307; 94667; J0131; J0690; J1100; J1170; J1885; J2250; J2405; J2704; J3010

== ENCOUNTER 2023-09-06 17:08 | Emergency (ER) | payer BC, SELFPAY ==
[2023-09-06 17:11] VITALS: BP 184/120; PULSE 104; TEMP 36.4; O2SAT 100; BMI 31.8
--- NOTE | 2023-09-06 17:23 | CT_ITS ---
[address] [address] Patient Name: BE WARNER MRN: [id number] date: 1990 Sex: F Assigned Patient Location: ED.MAIN Current Patient Location: ED.MAIN Accession/Order Number: [id number] Exam Date: 09/06/2023 17:45 Report Date: 09/06/2023 18:50 At the request of: ELMO GARCIA Procedure: CT abdomen pelvis w con EXAM: CT abdomen pelvis w con REASON FOR EXAM: Female, 32 years, Abdominal pain, post op. TECHNIQUE: Computed tomography of the abdomen and pelvis is performed in the axial projection from the lung bases to the pubic symphysis. Sagittal and coronal reconstructed images are performed. Dose reduction techniques were achieved by using automated exposure control and/or adjustment of mA and/or KVP according to patient size and/or use of iterative reconstruction technique. A total of 100 mL Omnipaque 300 IV contrast was given. Study was performed without oral contrast. COMPARISON: 07/09/2020 FINDINGS: Lung bases: The lung bases are clear. There is no pleural effusion. The visualized portions of the heart are unremarkable. Liver: The liver is normal. Gallbladder: The gallbladder is contracted. Spleen: The spleen is normal. Pancreas: The pancreas is normal. Adrenal glands: The adrenal glands are normal bilaterally. Right kidney: The kidney is normal in size. Multiple nonobstructing calculi are seen within the right kidney, the largest in the mid to inferior pole measuring 1 cm. No hydronephrosis or ureteral calculus. Left kidney: The kidney is normal in size. There is no renal calculus or hydronephrosis. Stomach: The stomach is distended with debris, suggesting a recently ingested meal. Small bowel: The small bowel is normal. Large bowel: The colon is normal. Appendix: The appendix is visualized, and is normal. Aorta: The aorta is normal. IVC: The IVC is normal. Retroperitoneum: Normal retroperitoneum. Bladder: The bladder is nearly empty at the time of scanning. Pelvic organs: The uterus is absent, consistent with hysterectomy. An involuting follicle is seen within the left ovary. No abnormal pelvic fluid collection is identified. Abdominal wall: Induration within the supraumbilical anterior abdominal wall may represent a prior port site. There is a small fat-containing umbilical hernia. Osseous structures: Normal bony structures. CT/CT abdomen pelvis w con IMPRESSION: Nonobstructing right renal calculi. No bowel obstruction or hydronephrosis. Normal appendix. Electronically authenticated by: EVANGELISTA LINDO Date: 09/06/2023 18:50
--- NOTE | 2023-09-06 17:25 | ED.FEMALEGU1 ---
HPI - Female Genitourinary General Chief complaint: Vaginal Bleeding Stated complaint: post op bleeding, hysterectomy 8 days ago Time Seen by Provider: 09/06/23 17:09 Source: patient Mode of arrival: walk-in Limitations: no limitations History of Present Illness HPI Narrative: Patient is a 32-year-old female who was referred to the emergency department from her [employer]OCKRO[employer] CL[employer] office for evaluation of vaginal bleeding and abdominal pain. She is 8 days postop from a robotic assisted laparoscopic hysterectomy. She states she had minimal bleeding after the procedure but for the last several days she has had sharp pains across the upper abdomen. She states she saw her STOCKROOM CLERK today in the office for follow-up, she was told that the pains were normal after a laparoscopic surgery. She states this afternoon at home, she had a more severe sharp pain in the right side of the abdomen and noticed vaginal bleeding. She has minimal bleeding at this time, no continuous gush of blood. No fevers or vomiting. No urinary symptoms. She states she called the office and was referred to the ER for evaluation because she was told that she should not be bleeding. Related Data Allergies Allergy/AdvReac Type Severity Reaction Status Date / Time No Known Drug Allergies Allergy Verified 09/06/23 17:11 Review of Systems ROS Constitutional Denies: fever or chills Ears, nose, mouth, and throat Denies: throat pain or nasal congestion Cardiovascular Denies: chest pain Respiratory Denies: shortness of breath Gastrointestinal Reports: abdominal pain; Denies: nausea, vomiting or diarrhea Genitourinary Reports: vaginal bleeding; Denies: painful urination or pelvic pain Integumentary/Breast Denies: rash Hematologic/Lymphatic Denies: easy bruising or easy bleeding [facility] Medical History (Updated 09/06/23 @ 18:56 by LIGIA Robledo) COVID-19 ?U07.1 - COVID-19 (ICD-10) Kidney stones ?N20.0 - Calculus of kidney (ICD-10) GERD (gastroesophageal reflux disease) ?K21.9 - Gastro-esophageal reflux disease without esophagitis (ICD-10) S/P extracorporeal shock wave therapy ?Z98.890 - Other specified postprocedural states (ICD-10) Dysmenorrhea ?N94.6 - Dysmenorrhea, unspecified (ICD-10) Dyspareunia Pelvic pain ?R10.2 - Pelvic and perineal pain (ICD-10) Menorrhagia ?N92.0 - Excessive and frequent menstruation with regular cycle (ICD-10) Surgical History (Updated 08/21/23 @ 08:18 by Kimberly Logan NP) History of tonsillectomy ?Z90.89 - Acquired absence of other organs (ICD-10) History of endometrial ablation ?Z98.890 - Other specified postprocedural states (ICD-10) History of bilateral salpingectomy ?Z90.79 - Acquired absence of other genital organ(s) (ICD-10) Family History (Updated 08/21/23 @ 08:18 by Kimberly Logan NP) Other Family history of cervical cancer Family history of colon cancer Family history of diabetes mellitus Family history of heart disease Family history of hypertension Family history of leukemia Social History Within the past year, how often did you have a drink containing alcohol: never Score interpretation: A score less than 3 is consistent with normal alcohol consumption. Smoking status: Never smoker Non-prescribed substance use: denies use Previous occupational history: Factory Highest level of school completed/degree received: high school graduate Exam Narrative Exam Narrative: Gen.: Awake, alert, in no distress Head: Normocephalic, atraumatic ENT: Moist mucous membranes Respiratory: No respiratory distress Gastrointestinal: Abdomen is soft, nondistended and Mildly Tender in the right upper quadrant With no guarding or rebound : External vaginal exam with no active bleeding, minimal dark red/brown blood on panty liner Extremities: Moves extremities equally Psych: Normal mood and affect Neuro: No focal neuro deficit Skin: Warm, dry, intact Constitutional Vital Signs, click to edit/add: Last Vital Signs Temp 97.6 F 09/06/23 17:11 Pulse 104 H 09/06/23 17:11 Resp 18 09/06/23 17:11 BP 150/87 H 09/06/23 17:36 Pulse Ox 100 09/06/23 17:11 O2 Del Method Room Air 09/06/23 17:11 Course Vital Signs Vital signs: Vital Signs Temperature 97.6 F 09/06/23 17:11 Pulse Rate 104 H 09/06/23 17:11 Respiratory Rate 18 09/06/23 17:11 Blood Pressure 184/120 H 09/06/23 17:11 Pulse Oximetry 100 09/06/23 17:11 Oxygen Delivery Method Room Air 09/06/23 17:11 Temperature 97.6 F 09/06/23 17:11 Pulse Rate 104 H 09/06/23 17:11 Respiratory Rate 18 09/06/23 17:11 Blood Pressure 150/87 H 09/06/23 17:36 Pulse Oximetry 100 09/06/23 17:11 Oxygen Delivery Method Room Air 09/06/23 17:11 MDM - Female Genitourinary MDM Narrative Medical decision making narrative: With no significant bleeding in the emergency department. Vital signs are stable, laboratory studies show normal white blood cell count and hemoglobin. Abdomen is soft and benign in the ER. CT with no evidence of acute process, normal appendix noted. Patient given education and reassurance to follow-up with STOCKROOM CLERK, return to the ER if symptoms change or worsen. SUPERVISED APC VISIT, PHYSICIAN ATTESTATION: Based on the medical record the care appears appropriate. ? Medical Records Attestation: I reviewed the patient's medical records. Lab Data Attestation: I reviewed the patient's lab results. Labs: Lab Results 09/06/23 09/06/23 Range/Units 17:30 17:32 WBC 13.4 H (4.0-11.0) 10^3/uL RBC 4.72 (4.20-5.40) 10^6/uL Hgb 14.0 (12.0-16.0) g/dL Hct 41.3 (36.0-48.0) % MCV 87.5 (81.0-99.0) fL MCH 29.7 (26.7-34.0) pg MCHC 33.9 (29.9-35.2) g/dL RDW 11.9 (11.0-15.0) % Plt Count 380 (150-450) 10^3/uL MPV 10.8 (9.5-13.5) fL Neut % (Auto) 71.3 (43.0-75.0) % Lymph % (Auto) 18.5 L (20.5-60.0) % Mower % (Auto) 7.2 (1.7-12.0) % Eos % (Auto) 2.4 (0.9-7.0) % Baso % (Auto) 0.4 (0.2-2.0) % Neut # (Auto) 9.5 H (1.4-6.5) 10^3/uL Lymph # (Auto) 2.5 (1.2-3.8) 10^3/uL Mower # (Auto) 1.0 H (0.3-0.8) 10^3/uL Eos # (Auto) 0.3 (0.0-0.7) 10^3/uL Baso # (Auto) 0.1 (0.0-0.1) 10^3/uL Abs Immat Gran (auto) 0.03 (0.00-0.03) 10^3/uL Imm/Tot Granulo (auto) 0.2 (0.0-0.5) % Sodium 137 (136-145) mmol/L Potassium 3.7 (3.5-5.1) mmol/L Chloride 103 (98-107) mmol/L Carbon Dioxide 26.4 (21.0-32.0) mmol/L Anion Gap 11.3 BUN 17.0 (7.0-18.0) mg/dL Creatinine 0.99 (0.55-1.02) mg/dL Est GFR ( Amer) >60 (>=60) Est GFR (Non-Af Amer) >60 (>=60) BUN/Creatinine Ratio 17.2 Glucose 106 (74-106) mg/dL Calcium 9.1 (8.5-10.1) mg/dL Total Bilirubin 0.4 (0.2-1.0) mg/dL AST 16 (15-37) U/L ALT 35 (14-59) U/L Alkaline Phosphatase 98 (46-116) U/L Total Protein 7.9 (6.4-8.2) g/dL Albumin 3.8 (3.4-5.0) g/dL Globulin 4.1 g/dL Albumin/Globulin Ratio 0.9 Urine Color Lt. yellow (YELLOW) Urine Clarity Clear (CLEAR) Urine pH 6.5 (5.0-9.0) Ur Specific [place] 1.020 (1.005-1.025) Urine Protein Negative (NEG/TRACE) mg/dL Urine Glucose (UA) Negative (NEGATIVE) mg/dL Urine Ketones Negative (NEGATIVE) mg/dL Urine Occult Blood Large A (NEGATIVE) Urine Nitrite Negative (NEGATIVE) Urine Bilirubin Negative (NEGATIVE) Urine Urobilinogen 0.2 (0.2-1.0) EU/dL Ur Leukocyte Esterase Negative (NEGATIVE) Urine RBC 2-5 A (0-2) #/HPF Urine WBC 0-2 A (NONE SEEN) #/HPF Ur Squamous Epith Cells Few A (NONE/RARE) #/LPF Urine Crystals None seen (None Seen) #/HPF Urine Bacteria Trace A (NONE SEEN) #/HPF Urine Casts None seen (NONE SEEN) #/LPF Urine Mucus None seen (NONE SEEN) Ur Culture Indicated? No Imaging Data CT scan - abdomen: Attestation: I have reviewed the pertinent imaging results. Radiologist's impression: ITS Impressions Abdomen/Pelvis CT 09/06/23 17:23 IMPRESSION: Nonobstructing right renal calculi. No bowel obstruction or hydronephrosis. Normal appendix. Electronically authenticated by: EVANGELISTA LINDO Date: 09/06/2023 18:50 Discharge Plan Discharge Stand Alone Forms: Portal Instructions Chief Complaint: Vaginal Bleeding Clinical Impression: Vaginal bleeding Patient Disposition: Home, Self-Care Time of Disposition Decision: 18:55 Condition: Good Print Language: Russian Instructions: Hysterectomy (DC) Referrals: Kurtis Theodore DO [Physician] - 1 week Physician,Non-Staff, [Primary Care Provider] - 1 week
[2023-09-06 17:36] VITALS: BP 150/87
[2023-09-06 17:39] LABS: Bilirubin Urine NEGATIVE (NEGATIVE); Blood Urine LARGE (NEGATIVE); Clarity Urine CLEAR (CLEAR); Color Urine LT. YELLOW (YELLOW); Glucose Urine UA NEGATIVE (NEGATIVE); Ketones Urine NEGATIVE (NEGATIVE); Leukocyte Esterase Urine NEGATIVE (NEGATIVE); Nitrite Urine NEGATIVE (NEGATIVE); Protein Urine NEGATIVE (NEG/TRACE); Urobilinogen Urine 0.2 EU/dL (0.2-1.0); pH Urine 6.5 (5.0-9.0)
[2023-09-06 17:40] LABS: Basophils Absolute Auto 0.1 10^3/uL (0.0-0.1); Basophils Percent Auto 0.4 % (0.2-2.0); Eosinophils Absolute Auto 0.3 10^3/uL (0.0-0.7); Eosinophils Percent Auto 2.4 % (0.9-7.0); Hematocrit 41.3 % (36.0-48.0); Immature Granulocytes Abs Auto 0.03 10^3/uL (0.00-0.03); Immature Granulocytes Pct Auto 0.2 % (0.0-0.5); Lymphocytes Absolute Auto 2.5 10^3/uL (1.2-3.8); Lymphocytes Percent Auto 18.5 % (20.5-60.0); Mean Corpuscular HGB Conc 33.9 g/dL (29.9-35.2); Mean Corpuscular Hemoglobin 29.7 pg (26.7-34.0); Mean Corpuscular Volume 87.5 fL (81.0-99.0); Mean Platelet Volume 10.8 fL (9.5-13.5); Monocytes Percent Auto 7.2 % (1.7-12.0); Neutrophils Absolute Auto 9.5 10^3/uL (1.4-6.5); Neutrophils Percent Auto 71.3 % (43.0-75.0); Platelet Count 380 10^3/uL (150-450); Red Blood Count 4.72 10^6/uL (4.20-5.40); Red Cell Distribution Width 11.9 % (11.0-15.0); White Blood Count 13.4 10^3/uL (4.0-11.0)
[2023-09-06 17:44] LABS: Urine Microscopic Indicated YES
[2023-09-06 17:49] LABS: Bacteria Urine TRACE #/HPF (NONE SEEN); Cast Seen? NONE SEEN #/LPF (NONE SEEN); Crystals Seen? None Seen #/HPF (None Seen); Mucus Urine NONE SEEN (NONE SEEN); Squamous Epithelial Cell Urine FEW #/LPF (NONE/RARE)
[2023-09-06 17:51] LABS: WBC Urine 0-2 #/HPF (NONE SEEN)
[2023-09-06 17:52] LABS: Urine Culture Indicated NO
[2023-09-06 18:20] LABS: Alanine Aminotransferase 35 U/L (14-59); Albumin Globulin Ratio 0.9; Albumin Level 3.8 g/dL (3.4-5.0); Alkaline Phosphatase 98 U/L (46-116); Anion Gap 11.3; Aspartate Amino Transferase 16 U/L (15-37); BUN Creatinine Ratio 17.2; Bilirubin Total 0.4 mg/dL (0.2-1.0); Calcium 9.1 mg/dL (8.5-10.1); Carbon Dioxide 26.4 mmol/L (21.0-32.0); Chloride 103 mmol/L (98-107); Estimated GFR (African America >60 (>=60); Estimated GFR (Non-African Ame >60 (>=60); Globulin 4.1 g/dL; Glucose 106 mg/dL (74-106); Potassium 3.7 mmol/L (3.5-5.1); Sodium 137 mmol/L (136-145); Total Protein 7.9 g/dL (6.4-8.2)
== END 2023-09-06 19:09 | disposition home or self-care (01) ==
PROVIDERS: Physician Assistant; Emergency Provider Student in an Organized Health Care Education/Training Program
DX: N93.9 Abnormal uterine and vaginal bleeding, unspecified (principal); Z90.710 Acquired absence of both cervix and uterus
CPT/HCPCS: 36415; 74177; 80053; 81001; 85025; 99284; Q9967

== ENCOUNTER 2024-09-08 22:24 | Emergency (ER) | payer BC, SELFPAY ==
[2024-09-08 22:29] VITALS: BP 165/97; PULSE 81; TEMP 37; O2SAT 100; BMI 35.8
--- OUTSIDE RECORDS SUMMARY | 2024-09-08 22:40 | XMS_ITS | Clinical Summary ---
Author Organization [employer] Address [id number] [address] [place] [address] Care Team Providers Care Contractor General Engineering Name Role Phone Aura Jovel MD Primary Care Provider + Allergies No known active allergies Medications ibuprofen (MOTRIN) 600 mg tablet Take 1 tablet (600 mg total) by mouth every 6 (six) hours as needed for pain. 30 tablet 10/08/2022 Active Active Problems Problem Noted Date Diagnosed Date History of gestational diabe shu in prior , currently in second trimester 05/13/2018 History of pre-eclampsia in prior , currently in second trimester 05/13/2018 History of thyroid disease 05/13/2018 H/O: depression 05/13/2018 Resolved Problems Problem Noted Date Diagnosed Date Resolved Date Migraines 05/13/2018 05/13/2018 Immunizations Immunization Administration Dates Next Due Tdap 01/25/2019 Family History Medical History Relation Name Comments Cancer Maternal Grandfather lung Cancer Paternal Grandfather leukemi a Diabetes Paternal Grandmother Relation Name Status Comments Maternal Grandfather Paternal Grandfather Paternal Grandmother Social History Tobacco Use Types Packs/Day Years Used Date Smoking Tobacco: Never Smokeless Tobacco: Never Alcohol Use Standard Drinks/Week Comments Yes 0 (1 standard drink = 0.6 oz pur e alcohol) rarely Childcare Answer Date Recorded Childcare Unknown 08/07/2018 Employment Answer Date Recorded Employment Unknown 08/07/2018 Hunger Screening Answer Date Recorded Within the past 12 months we worried whether our food would run out before we got money to buy more. Never True 01/01/2024 Within the past 12 months th e food we bought just didn't last and we didn't have money to get more. Never True 01/01/2024 Purpose - Life Answer Date Recorded Purpose and direction in life Unknown Comments No Sex and Gender Information Value Date Recorded Sex Assigned at Not on file Legal Sex Female 11:49 AM EDT Gender Identity Not on file Sexual Orientation Not on file Last Filed Vital Signs Vital Sign Reading Time Taken Comments Blood Pressure 161/98 01/01/2024 5:21 PM EST Pulse 90 01/01/2024 5:21 PM EST Temperature 37 C (98.6 F) 01/01/2024 5:21 PM EST Respiratory Rate 16 01/01/2024 5:21 PM EST Oxygen Saturation 100% 01/01/2024 5:21 PM EST Inhaled Oxygen Concentration - - Weight 90.7 kg (200 lb) 01/01/2024 5:21 PM EST Height 165.1 cm (5' 5 ) 01/01/2024 5:21 PM EST Body Mass Index 33.28 01/01/2024 5:21 PM EST Plan of Treatment Health Maintenance Due Date Last Done Comments Depression Screening 2003 Adult BMI Follow Up Plan 09/28/2009 COVID-19 Vaccine ( season) 10/28/202309/2020, 11/12/2020 Influenza Vaccine 10/27/2024 Adult BMI Screening 12/31/2024 01/01/2024 Tobacco Screening 12/31/2024 01/01/2024 Pap Smear 02/15/2025 02/15/2022 DTaP,Tdap and Td Vaccines (2 - Td or Tdap) 01/25/2029 01/25/2019 Medical Devices Not on file Insurance [employer] Care Teams Contractor General Engineering Relationship Specialty Start Date End Date Aura Jovel MD [address] [place] [address] PCP - General Pediatrics 12/31/23
--- OUTSIDE RECORDS SUMMARY | 2024-09-08 22:40 | XMS_ITS | Encounter Summary ---
Author Organization [facility] Address [address] [place] [address] Care Team Providers Care Landscape Artist Name Role Phone Unavailable Primary Care Provider Unavailabl e Encounter Details Date Type Department Care Team (Late st Contact Info) Description 09/10/2023 Abstract [facility] [address] [facility] [place] [address] Kurtis Theodore, DO [address], [id number] Social History Tobacco Use Types Packs/Day Years Used Date Smoking Tobacco: Never Assessed Comments No Sex and Gender Information Value Date Recorded Sex Assigned at Not on file Legal Sex Female 11:17 PM EDT Gender Identity Not on file Sexual Orientation Not on file documented as of this encounter Plan of Treatment Not on file documented as of this encounter Visit Diagnoses Not on filedocumented in this encounter
--- OUTSIDE RECORDS SUMMARY | 2024-09-08 22:40 | XMS_ITS | Clinical Summary ---
Author Organization [facility] Address [address] [place] [address] Care Team Providers Care Domestic Helper Name Role Phone Unavailable Primary Care Provider Unavailabl e Allergies No known active allergies Medications No known medications Social History Tobacco Use Types Packs/Day Years Used Date Smoking Tobacco: Never Assessed Comments No Sex and Gender Information Value Date Recorded Sex Assigned at Not on file Legal Sex Female 11:17 PM EDT Gender Identity Not on file Sexual Orientation Not on file Last Filed Vital Signs Vital Sign Reading Time Taken Comments Blood Pressure 130/80 05/08/2024 1:55 PM EDT Pulse - - Temperature - - Respiratory Rate - - Oxygen Saturation - - Inhaled Oxygen Concentration - - Weight 95.9 kg (211 lb 6.4 oz) 05/08/2024 1:55 P M EDT Height 167.6 cm (5' 6 ) 10/11/2023 11:44 AM EDT Body Mass Index 34.12 10/11/2023 11:44 AM EDT Plan of Treatment Health Maintenance Due Date Last Done Comments Cervical Cancer Screening 07/31/2024 HPV/Cotest 07/31/2024 Pap Smear 07/31/2024 08/01/2023, 02/15/2022 Influenza Vaccine (#1) 2024 Procedures Procedure Name Priority Date/Time Associated Diagnosis Comments PAP SMEAR Routine 08/01/2023 12:00 AM EDT from Last 3 Months or Most Recently Relevant to Health Maintenance Results * Pap Smear (08/01/2023 12:00 AM EDT) Swab Cervical swab / Unknown Kurtis Theodore DO LAB CYTOLOGY ORDERABLES Final Re sult EXTERNAL LAB from Last 3 Months or Most Recently Relevant to Health Maintenance Insurance [facility]
--- OUTSIDE RECORDS SUMMARY | 2024-09-08 22:40 | XMS_ITS | Encounter Summary ---
Author Organization [facility] Address [address] [place] [address] Care Team Providers Care Greige Goods Marker Name Role Phone Unavailable Primary Care Provider Unavailabl e Encounter Details Date Type Department Care Team (Late st Contact Info) Description 08/27/2023 Abstract [facility] [address] [facility] [place] [address] Kurtis Theodore, DO [address] [place] [address] Social History Tobacco Use Types Packs/Day Years [...]
--- OUTSIDE RECORDS SUMMARY | 2024-09-08 22:40 | XMS_ITS | CCD ---
Author Organization [facility] Care Team Providers Care Undercollar Maker Name Role Phone REQUEST, DR NONE LISTED Primary Care Unavaila ble WEST, DR YOLANDA Riddle Consulting Unavailable ARBEN, DR NICOLAS Attending Unavailable ARBEN, DR NICOLAS Admitting Unavailable ARBEN, DR NICOLAS Consulting Unavailable REQUEST, NONE LISTED Primary Care Unavaila ble ARBEN, DR NICOLAS Attending Unavailable ARBEN, DR NICOLAS Admitting Unavailable REQUEST, NONE LISTED Primary Care Unavaila ble ARBEN, DR [...] Unavailable Fany Oneill Unavailable Fidencio Theodore Attending Provider [phone] Fidencio Theodore Attending Unavailable Fidencio Theodore Admitting Unavailable Fidencio Theodore Admitting Unavailable Fidencio Theodore Attending Unavailable KANDICE BOSWELL Primary Care UnavailMARGOT Cruz Attending Unavailable KANDICE BOSWELL Primary Care UnavailJESUS Peoples Attending Unavailable Unavailable Primary Care Provider UnavailCA Arteaga Attending Unavailable FIDENCIO THEODORE Attending Unavailable FIDENCIO THEODORE Attending Unavailable FIDENCIO THEODORE Attending Unavailable FIDENCIO THEODORE Attending Unavailable CA DOWELL Attending Unavailable Medications Current Medications Medication Drug [...] directed Orally As Directed for 6 days Dec, Active Completed/Discontinued Medications Medication Drug Class(es) Dates [...] FREQ MENSTRUATION W/REG CYCL] Onset: 04-12-2022 Chronic Mycoses (2 sources) Mycosis; Translations: [Candidiasis, unspecified] 05-08-2024 Episodic Other screening for suspected conditions (not mental disorders or infectious disease) (4 sources) Encounter for screening for malignant neoplasm of cervix; Translations: [ENC SCREENING MALIG NEOPLASM CERV] Onset: 02-15-2022 Episodic Other upper respiratory infections (2 sources) Acute upper respiratory infection, unspecified Episodic Residual codes; unclassified (1 source) Family history of malignant neoplasm, unspecified; Translations: [FAM HX MALIGNANT NEOPLASM UNS] Onset: 04-13-2022 Episodic Unclassified (1 source) Female Dysuria Onset: 01-01-2024 Unclassified (2 sources) Rash Onset: 12-31-2023 Viral infection (3 sources) Unspecified viral infection characterized by skin and mucous membrane lesions; Translations: [Enteroviral vesicular stomatitis with exanthem] Onset: 12-31-2023 Episodic Results Test Name Value Interpretation Reference Range Facility HCG ( test) Ql (U)o n 01-01-2024 Beta HCG ( test) Ql (U) Negative Normal NEG [facility] Comment on above: Performed By: #### 2 [id number] #### [facility] ([id number]) [address] [place] [address]13 T. pallidum IgG+IgM IA Ql (S )on 01-01-2024 Syphilis Total <0.2 Normal 0.0-0.8 [facility] Comment on above: Result Comment: NON REACTIVE No serologic evidence of infection to Treponema pallidum (syphilis). Repeat testing may be considered in patients with suspected acute or primary syphilis in 2 to 4 weeks. Performed By: #### 4 7236-5 #### [facility] ([id number]) [address] [place] [address], [address] [place] [address] URN MACROSCOPIC NURon 2023 BILIRUBIN PEEWEE Negative Normal NEG [facility] Comment on above: Performed By: #### N UM #### [facility] ([id number]) [address] [place] [address] 64422 BLOOD/HGB PEEWEE Trace Abnormal NEG [facility] Comment on above: Performed By: #### N UM #### [facility] ([id number]) [address] [place] [address]334 GLUCOSE PEEWEE Negative Normal NEG [facility] Comment on above: Performed By: #### N UM #### [facility] ([id number]) [address] [place] [address] 41366 KETONES PEEWEE Negative Normal NEG [facility] Comment on above: Performed By: #### N UM #### [facility] ([id number]) [address] [place] [address] 11419 LEUKOCYTE ESTERASE PEEWEE Trace Abnormal NEG [facility] Comment on above: Performed By: #### N UM #### [facility] ([id number]) [address] [place] [address] 69111 NITRITE PEEWEE Negative Normal NEG [facility] Comment on above: Performed By: #### N UM #### [facility] ([id number]) [address] [place] [address] 47703 PH PEEWEE 7.0 Normal 5.0-8.5 [facility] Comment on above: Performed By: #### N UM #### [facility] ([id number]) [address] [place] [address] 76353 PROTEIN PEEWEE Negative Normal NEG [facility] Comment on above: Performed By: #### N UM #### [facility] ([id number]) [address] [place] [address] 97160 SPECIFIC GRAVITY PEEWEE 1.015 Normal 1.003-1.035 [facility] Comment on above: Performed By: #### N UM #### [facility] ([id number]) [address] [place] [address] 30421 UROBILINOGEN PEEWEE 0.2 eu/dL Normal <1.1 [facility] Comment on above: Performed By: #### N UM #### [facility] ([id number]) [address] [place] [address] 09638 Jose 08-29-2023 L Specimen: [id number] Received: 08/29/23 Status: VIN Collins Num: [id number] Spec Type: Surgical Subm Dr: Fidencio Theodore Tissues: A Uterus w/ or w/o tubes ovaries except neoplastic or prolap (CERVIX, UTERUS Procedures: /, Gross/Micro L5 Age/ Patient Sex Location Account Attending Physician Berenice Warner Faheem LABELL [id number] Fidencio Theodore SPEC NUM: [id number] RECD: 08/29/23 STATUS: VIN COLLINS NUM: [id number] RAHEEM: 08/29/[address]: Fidencio Theodore ENTERED: 08/29/[address]: Lois,Lab SPEC TYPE: Surgical DEPT: RODRIGO STEVENS ORDERED: HE/12, Gross/Micro L5 ORDERED: HE/12, Gross/Micro L5 Pathological Diagnosis Uterus and cervix, total hysterectomy: -Cervix with mild chronic cervicitis, including at least 1 nabothian cyst without dysplasia -Corpus with slightly disordered proliferative endometrium of at least mid phase type without hyperplasia or atypia -Incidental small foci of the post ablation denudation of the endometrial mucosa on both prieto, and with mildly associated stromal hemorrhage also noted -Incidental small foci of mild superficial adenomyosis also observed Clinical Information Menorrhagia, pelvic pain, dyspareunia, dysmenorrhea Gross Description Received in formalin, labeled with the patient's name, date of and cervix and uterus is a 109.8 g uterus with attached cervix, measuring 6.4 cm cornu to cornu, 8.9 cm fundus to os, 4.7 cm anterior-posterior and covered by smooth and glistening lai-pink serosa. The roughened brown cervix is 3.1 cm long and 3.5 cm wide, leading to a 3.9 x 3.8 cm roughened and dusky ectocervix with a 1.1 cm slitlike os. Sectioning into the cervix demonstrates a 0.6 x 0.5 cm clear fluid-filled cyst within the posterior aspect. The 4.5 cm long and 0.5-0.7 cm wide endocervical canal leads to a triangular 2.6 cm fundus to internal os and 2.7 cm cornu to cornu endometrial cavity. The soft, lai 0.1 cm thick endometrium overlies a 1.8 cm thick lai trabeculated myometrium. No nodules or discrete masses are Specimen: [id number] Received: 08/29/23 Status: VIN Collins Num: [id number] Spec Type: Surgical Subm Dr: Fidencio Theodore Tissues: A Uterus w/ or w/o tubes ovaries except neoplastic or prolap (CERVIX, UTERUS Procedures: , Gross/Micro L5 Patient: Berenice Warner [id number] (Continued) Specimen: [id number] Received: 08/29/23 (Continued) Gross Description (Continued) Signed (signature on file) Zackray Monaco MD 08/31/23 1749 Specimen: [id number] Received: 08/29/23 Status: VIN Collins Num: [id number] Spec Type: Surgical Subm Dr: Fidencio Theodore Tissues: A Uterus w/ or w/o tubes ovaries except neoplastic or prolap (CERVIX, UTERUS Procedures: , Gross/Micro L5 Patient: Berenice Warner [id number] (Continued) Specimen: [id number] Received: 08/29/23-130 (Continued) Gross Description (Continued) identified. Pipe Installer sections submitted as follows: A1: Anterior cervix A2: Posterior cervix, to include cyst A3?A4: Anterior endomyometrium A5?A6: Posterior endomyometrium TW CPT Codes 41463 Specimen: [id number] Received: 08/29/23 Status: VIN Collins Num: [id number] Spec Type: Surgical Subm Dr: Fidencio Theodore Tissues: A Uterus w/ or w/o tubes ovaries except neoplastic or prolap (CERVIX, UTERUS Procedures: , Gross/Micro L5 Patient: Berenice Warner [id number] (Continued) Signed (signature on file) Zackary Monaco MD 08/31/231748 [facility] Physician Group [facility] 07-11-2023 L Specimen: [id number] Received: 07/12/23 Status: BRIANNAMelissa Collins Num: [id number] Spec Type: Surgical Subm Dr: Fidencio Theodore Tissues: A Endometrium - Biopsy (EMBX) Procedures: , Gross/Micro L4 Age/ Patient Sex Location Account Attending Physician Berenice Warner LABELL [id number] Fidencio Theodore SPEC NUM: [id number] RECD: 07/12/23 STATUS: VIN CHOWLoc NUM: [id number] RAHEEM: 07/11/[address]: Fidencio Theodore ENTERED: 07/12/[address]: Lois,Lab SPEC TYPE: Surgical DEPT: RODRIGO [...] history: Menorrhagia with irregular cycle CPT Codes 11678 Specimen: [id number] Received: 07/12/23 Status: VIN Collins Num: [id number] Spec Type: Surgical Subm Dr: Fidencio Theodore Tissues: A Endometrium - Biopsy (EMBX) Procedures: HE/2, Gross/Micro L4 Patient: Berenice Warner [id number] (Continued) Signed (signature on file) Chin-Kavon Monaco MD 07/15/23 1457 Normal [facility] COVID + FLU Quick Testingon 06-25-2022 SARS-CoV-2 (COVID-19) RNA ANDREW+probe Ql (Unsp spec) Negative [facility] Other COVID + FLU Quick Testing Negative [employer] [facility] Other Quick Strepon 06-25-2022 S. pyogenes Org specific cx Ql (Throat) Negative [facility] Other Quick Strep [facility] Other CBC AUTO DIFFon 04-12-2022 BASO # 0.1 103/ul Normal 0.0-0.1 [facility] Comment on above: Performed By: #### C BC #### [facility] [address] [place] [address] Dr. Peri Monaco Basophils/100 WBC (Bld) 0.5 % Normal 0.2-2.0 [facility] Comment on above: Performed By: #### C BC #### [facility] [address] [place] [address] Dr. Peri Monaco EO # 0.3 103/ul Normal 0.0-0.7 [facility] Comment on above: Performed By: #### C BC #### [facility] [address] [place] [address] Dr. Peri Monaco Eosinophils/100 WBC (Bld) 3.0 % Normal 0.9-7.0 [facility] Comment on above: Performed By: #### C BC #### [facility] [address] [place] [address] Dr. Peri Monaco Erythrocyte distribution width (RBC) [Ratio] 12.5 % Normal 11.0-15.0 [facility] Comment on above: Performed By: #### C BC #### [facility] [address] [place] [address] Dr. Peri Monaco Hematocrit (Bld) [Volume fraction] 40.2 % Normal 36.0-48.0 [facility] Comment on above: Performed By: #### C BC #### [facility] [address] [place] [address] Dr. Peri Monaco Hemoglobin (Bld) [Mass/Vol] 13.7 g/dL Normal 12.0-16.0 [facility] Comment on above: Performed By: #### C BC #### [facility] [address] [place] [address] Dr. Peri Monaco IG # 0.04 10e3/ul Critically high 0.00-0.03 [facility] Comment on above: Performed By: #### C BC #### [facility] [address] [place] [address] Dr. Peri Monaco IG % 0.3 % Normal 0.0-0.5 [facility] Comment on above: Performed By: #### C BC #### [facility] [address] [place] [address] Dr. Peri Monaco LYMPH # 3.4 103/ul Normal 1.2-3.8 [facility] Comment on above: Performed By: #### C BC #### [facility] [address] [place] [address] Dr. Peri Monaco Lymphocytes/100 WBC (Bld) 29.8 % Normal 20.5-60.0 [facility] Comment on above: Performed By: #### C BC #### [facility] [address] [place] [address] Dr. Peri Monaco MANUAL DIFF REQ NO Normal [facility] Comment on above: Performed By: #### C BC #### [facility] [address] [place] [address] Dr. Peri Monaco MCH (RBC) [Entitic mass] 28.9 pg Normal 26.7-34.0 [facility] Comment on above: Performed By: #### C BC #### [facility] [address] [place] [address] Dr. Peri Monaco MCHC (RBC) [Mass/Vol] 34.1 g/dL Normal 29.9-35.2 [facility] Comment on above: Performed By: #### C BC #### [facility] [address] [place] [address] Dr. Peri Monaco MCV (RBC) [Entitic vol] 84.8 fL Normal 81.0-99.0 [facility] Comment on above: Performed By: #### C BC #### [facility] [address] [place] [address] Dr. Peri Monaco MONO # 0.7 103/ul Normal 0.3-0.8 [facility] Comment on above: Performed By: #### C BC #### [facility] [address] [place] [address] Dr. Peri Monaco Monocytes/100 WBC (Bld) 5.8 % Normal 1.7-12.0 [facility] Comment on above: Performed By: #### C BC #### [facility] [address] [place] [address] Dr. Peri Monaco NEUT # 7.0 103/ul Critically high 1.4-6.5 [facility] Comment on above: Performed By: #### C BC #### [facility] [address] [place] [address] Dr. Peri Monaco Neutrophils/100 WBC (Bld) 60.6 % Normal 43.0-75.0 [facility] Comment on above: Performed By: #### C BC #### [facility] [address] [place] [address] Dr. Peri Monaco Platelet mean volume (Bld) [Entitic vol] 10.7 fL Normal 9.5-13.5 [facility] Comment on above: Performed By: #### C BC #### [facility] [address] [place] [address] Dr. Peri Monaco PLT 368 103/ul Normal 150-450 [facility] Comment on above: Performed By: #### C BC #### [facility] [address] [place] [address] Dr. Peri Monaco RBC 4.74 106/ul Normal 4.20-5.40 [facility] Comment on above: Performed By: #### C BC #### [facility] [address] [place] [address] Dr. Peri Monaco WBC 11.5 103/ul Critically high 4.0-11.0 [facility] Comment on above: Performed By: #### C BC #### [facility] [address] [place] [address] Dr. Peri Monaco PREG HCG QUALon 04-12-2022 , QUAL Negative Normal NEGATIVE [facility] Comment on above: Performed By: #### P REG #### [facility] [address] [place] [address] Dr. Peri Monaco CBC AUTO DIFFon 03-06-2022 BASO # 0.1 103/ul Normal 0.0-0.1 [facility] Comment on above: Performed By: #### C BC #### [facility] [address] [place] [address] Dr. Peri Monaco Basophils/100 WBC (Bld) 0.6 % Normal 0.2-2.0 [facility] Comment on above: Performed By: #### C BC #### [facility] [address] [place] [address] Dr. Peri Monaco EO # 0.3 103/ul Normal 0.0-0.7 [facility] Comment on above: Performed By: #### C BC #### [facility] [address] [place] [address] Dr. Peri Monaco Eosinophils/100 WBC (Bld) 2.9 % Normal 0.9-7.0 [facility] Comment on above: Performed By: #### C BC #### [facility] [address] [place] [address] Dr. Peri Monaco Erythrocyte distribution width (RBC) [Ratio] 12.0 % Normal 11.0-15.0 [facility] Comment on above: Performed By: #### C BC #### [facility] [address] [place] [address] Dr. Peri Monaco Hematocrit (Bld) [Volume fraction] 37.6 % Normal 36.0-48.0 [facility] Comment on above: Performed By: #### C BC #### [facility] [address] [place] [address] Dr. Peri Monaco Hemoglobin (Bld) [Mass/Vol] 13.5 g/dL Normal 12.0-16.0 [facility] Comment on above: Performed By: #### C BC #### [facility] [address] [place] [address] Dr. Peri Monaco IG # 0.03 10e3/ul Normal 0.00-0.03 [facility] Comment on above: Performed By: #### C BC #### [facility] [address] [place] [address] Dr. Peri Monaco IG % 0.3 % Normal 0.0-0.5 [facility] Comment on above: Performed By: #### C BC #### [facility] [address] [place] [address] Dr. Peri Monaco LYMPH # 2.7 103/ul Normal 1.2-3.8 [facility] Comment on above: Performed By: #### C BC #### [facility] [address] [place] [address] Dr. Peri Monaco Lymphocytes/100 WBC (Bld) 26.6 % Normal 20.5-60.0 [facility] Comment on above: Performed By: #### C BC #### [facility] [address] [place] [address] Dr. Peri Monaco MANUAL DIFF REQ NO Normal [facility] Comment on above: Performed By: #### C BC #### [facility] [address] [place] [address] Dr. Peri Monaco MCH (RBC) [Entitic mass] 28.7 pg Normal 26.7-34.0 [facility] Comment on above: Performed By: #### C BC #### [facility] [address] [address] [address] Peri Monaco MCHC (RBC) [Mass/Vol] 35.9 g/dL Critically high 29.9-35.2 [facility] Comment on above: Performed By: #### C BC #### [facility] [address] [place] [address] Dr. Peri Monaco MCV (RBC) [Entitic vol] 79.8 fL Critically low 81.0-99.0 [facility] Comment on above: Performed By: #### C BC #### [facility] [address] [place] [address] Dr. Peri Monaco MONO # 0.7 103/ul Normal 0.3-0.8 [facility] Comment on above: Performed By: #### C BC #### [facility] [address] [place] [address] Dr. Peri Monaco Monocytes/100 WBC (Bld) 6.5 % Normal 1.7-12.0 [facility] Comment on above: Performed By: #### C BC #### [facility] [address] [place] [address] Dr. Peri Monaco NEUT # 6.5 103/ul Normal 1.4-6.5 [facility] Comment on above: Performed By: #### C BC #### [facility] [address] [place] [address] Dr. Peri Monaco Neutrophils/100 WBC (Bld) 63.1 % Normal 43.0-75.0 [facility] Comment on above: Performed By: #### C BC #### [facility] [address] [place] [address] Dr. Peri Monaco Platelet mean volume (Bld) [Entitic vol] 10.2 fL Normal 9.5-13.5 [facility] Comment on above: Performed By: #### C BC #### [facility] [address] [place] [address] Dr. Peri Monaco PLT 377 103/ul Normal 150-450 [facility] Comment on above: Performed By: #### C BC #### [facility] [address] [place] [address] Dr. Peri Monaco RBC 4.71 106/ul Normal 4.20-5.40 [facility] Comment on above: Performed By: #### C BC #### [facility] [address] [place] [address] Dr. Peri Monaco WBC 10.2 103/ul Normal 4.0-11.0 [facility] Comment on above: Performed By: #### C BC #### [facility] [address] [place] [address] Dr. Peri Monaco FREE T4on 03-06-2022 Free T4 [Mass/Vol] 0.76 ng/dL Normal 0.76-1.46 [facility] Comment on above: Performed By: #### F T4 #### [facility] [address] [place] [address] Dr. Peri Monaco GLYCOHEMOGLOBIN A1Con 2022 ADA RECOMMENDATION SEE BELOW Normal [facility] Comment on above: Result Comment: ADA RECOMMENDED LIMIT 4.0 - 6.0 ADA THERAPEUTIC TARGET < 7.0 ACTION SUGGESTED > 7.0 Performed By: #### C BC #### [facility] [address] [place] [address] Dr. Peri Monaco Glucose [Mass/Vol] 108 mg/dL Normal [facility] Comment on above: Performed By: #### C BC #### [facility] [address] [place] [address] Dr. Peri Monaco HbA1c (Bld) [Mass fraction] 5.4 % Normal 4.5-6.2 [facility] Comment on above: Performed By: #### C BC #### [facility] [address] [place] [address] Dr. Peri Monaco PROTIMEon 03-06-2022 INR Coag (PPP) [Relative time] 0.95 {INR} Normal [facility] Comment on above: Performed By: #### P T, PTT #### [facility] [address] [place] [address] Dr. Peri Monaco INR GUIDELINES SEE BELOW Normal [facility] Comment on above: Result Comment: WILLY RED INR: 2.0 - 3.0 CONDITIONS NOT LISTED BELOW 2.5 - 3.5 FOR PROSTHETIC HEART VALVE REPLACEMENT 2.5 - 3.5 RECURRENT THROMBOSIS Performed By: #### P T, PTT #### [facility] [address] [place] [address] Dr. Peri Monaco PT Coag (PPP) [Time] 10.3 s Normal 9.0-11.6 [facility] Comment on above: Performed By: #### P T, PTT #### [facility] [address] [address] [address] Peri Monaco PTTon 03-06-2022 aPTT Coag (Bld) [Time] 34.8 s Normal 22.3-36.2 [facility] Comment on above: Performed By: #### P T, PTT #### [facility] [address] [place] [address] Dr. Peri Monaco TSHon 03-06-2022 TSH 1.516 uIU/mL Normal 0.358-3.740 [facility] Comment on above: Performed By: #### C BC #### [facility] [address] [place] [address] Dr. Peri Monaco US PELVIS AND TRANSVAGon [...] by: YOLANDA DELCID Date: 2022-03-06 11:40 Normal [facility] PAP ACOG PANEL 2: 30 to 65on 02-28-2022 . . Normal [facility] Comment on above: Result Comment: Perf ormed at: WB Performed By: #### [id number] #### [facility] [address] [place] [address] Dr. Peri Monaco Age Gdln ACOG Testing 30-65 Normal [facility] Comment on above: Performed By: #### 4 [id number] #### [facility] [address] [address] [address] Peri Monaco DIAGNOSIS: Comment Normal [facility] Comment on above: Result Comment: NEGA TIVE FOR INTRAEPITHELIAL LESION OR MALIGNANCY. FUNGAL ORGANISMS MORPHOLOGICALLY CONSISTENT WITH SHEILA SPECIES ARE PRESENT. Performed at: WB Performed By: #### [id number] #### [facility] [address] [place] [address] Dr. Peri Monaco HPV Aptima Negative Normal Negative [facility] Comment on above: Result Comment: This nucleic acid amplification test detects fourteen high-risk HPV types (16,18,31,33,35,39,45,51,52,56,58,59,66,68) without differentiation. Performed at: =G Performed By: #### [id number] #### [facility] [address] [place] [address] Dr. Peri Monaco HPV Genotype Reflex Comment Normal [facility] Comment on above: Result Comment: Crit eria not met, HPV Genotype not performed. Performed at: WB Performed By: #### [id number] #### [facility] [address] [place] [address] Dr. Peri Monaco Methodology: Comment Normal [facility] Comment on above: Result Comment: This liquid based ThinPrep(R) pap test was screened with the use of an image guided system. Performed at: WB Performed By: #### [id number] #### [facility] [address] [place] [address] Dr. Peri Monaco Note: Comment Normal [facility] Comment on above: Result Comment: The Pap smear is a screening test designed to aid in the detection of premalignant and malignant conditions of the uterine cervix. It is not a diagnostic procedure and should not be used as the sole means of detecting cervical cancer. Both false-positive and false-negative reports do occur. . Performed at: WB Performed By: #### [id number] #### [facility] [address] [place] [address] Dr. Peri Monaco Performed by: Comment Normal [facility] Comment on above: Result Comment: Jozef Aguirre Shopper'S Aide (ASCP) Performed at: WB Performed By: #### [id number] #### [facility] [address] [place] [address] Dr. Peri Monaco Specimen adequacy: Comment Normal [facility] Comment on above: Result Comment: Sati sfactory for evaluation. Endocervical and/or squamous metaplastic cells (endocervical component) are present. Performed at: WB Performed By: #### [id number] #### [facility] [address] [place] [address] Dr. Peri Monaco CHLAMYDIA/GONOCOCCUS ANDREW (SW AB/URINE/PAPon 02-18-2022 Chlamydia trachomatis, ANDREW Negative Normal Negative [facility] Comment on above: Performed By: #### C T/NGNA #### [facility] [address] [place] [address] Dr. Peri Monaco Neisseria gonorrhoeae, ANDREW Negative Normal Negative [facility] Comment on above: Performed By: #### C T/NGNA #### [facility] [address] [place] [address] Dr. Peri Monaco VAGINITIS/VAGINOSIS DNA PROB Jeffy 02-17-2022 Sheila species Negative Normal Negative [facility] Comment on above: Performed By: #### V AGINT #### [facility] [address] [place] [address] Dr. Peri Monaco Gardnerella vaginalis Negative Normal Negative [facility] Comment on above: Performed By: #### V AGINT #### [facility] [address] [place] [address] Dr. Peri Monaco Trichomonas vaginalis Negative Normal Negative [facility] Comment on above: Performed By: #### V AGINT #### [facility] [id number] Peri Monaco Provider Letteron 10-22-2020 Provider Letter October 22, 2020 October 22, 2020 RACHEL WARNERERRA A [address] [place] [address] ALANA, BERENICE A 1990 Dear Berenice Warner, You missed your scheduled appointment on: 10/22/2020 [...] appreciate your understanding. Sincerely, [facility] [address], [place] [address] [facility] Vital Signs Date Time Vital Sign Value Performing Clinician Facility 05-08-2024 13:55-0400 Body mass index (BMI) [Ratio] 34.12 kg/m2 Ca STRONG Work Phone: [facility] 05-08-2024 13:55-0400 Body weight 95.89 kg Ca STRONG Work Phone: [facility] 05-08-2024 13:55-0400 Diastolic blood pressure 80 mm[Hg] Ca STRONG Work Phone: [facility] 05-08-2024 13:55-0400 Systolic blood pressure 130 mm[Hg] Ca STRONG Work Phone: [facility] 01-08-2023 15:20-0500 Body height 167.64 cm Fany Oneill Other [facility] Other 01-08-2023 15:20-0500 Body mass index (BMI) [Ratio] 31.31 kg/m2 Fany Oneill Other [facility] Other 01-08-2023 15:20-0500 Body temperature 99.7 [degF] Fany Oneill Other [facility] Other 01-08-2023 15:20-0500 Body weight 88 kg Fany Oneill Other [facility] Other 01-08-2023 15:20-0500 Respiratory rate 20 /min Fany Oneill Other [facility] Other 01-08-2023 15:20-0500 SaO2% (BldA) [Mass fraction] 98 % Fany Oneill Other [facility] Other 06-25-2022 14:20-0400 Body height 167.64 cm Angelina Gómez Other [facility] Other 06-25-2022 14:20-0400 Body mass index (BMI) [Ratio] 32.28 kg/m2 Angelina Gómez Other [facility] Other 06-25-2022 14:20-0400 Body temperature 98 [degF] Angelina Gómez Other [facility] Other 06-25-2022 14:20-0400 Body weight 90.72 kg Angelina Gómez Other [facility] Other 06-25-2022 14:20-0400 Diastolic blood pressure 93 mm[Hg] Angelina Gómez Other [facility] Other 06-25-2022 14:20-0400 Respiratory rate 18 /min Angelina Gómez Other [facility] Other 06-25-2022 14:20-0400 SaO2% (BldA) [Mass fraction] 98 % Angelina Gómez Other [facility] Other 06-25-2022 14:20-0400 Systolic blood pressure 162 mm[Hg] Angelina Gómez Other [facility] Other Encounters Encounter Date Encounter Type Care Provider Facility Start: 05-08-2024 End: 05-08-2024 Bamboo flowsheet Ca STRONG Work Phone: [facility] Start: 05-08-2024 End: 05-08-2024 Bamboo flowsheet Ca STRONG Work Phone: [facility] Start: 05-08-2024 End: 05-08-2024 ambulatory CA DOWELL Not Available Start: 05-08-2024 End: 05-08-2024 Office outpatient visit 15 minutes Ca STRONG Work Phone: [facility] Comment on above: Yeast infection Start: 01-01-2024 End: 01-01-2024 Emergency department patient visit [facility] Start: 12-31-2023 End: 12-31-2023 Emergency department patient visit [facility] Start: 10-11-2023 End: 10-11-2023 ambulatory CA DOWELL Not Available Start: 09-06-2023 End: 09-06-2023 ambulatory FIDENCIO ARBEN Not Available Start: 08-29-2023 End: 08-29-2023 ambulatory Fidencio Arben [facility] Work Phone: Start: 08-29-2023 End: 08-29-2023 Departed Referred Fidencio Watkinso Work Phone: [facility] Start: 08-01-2023 End: 08-01-2023 ambulatory FIDENCIO THEODORE Not Available Start: 07-11-2023 End: 07-11-2023 Departed Referred Fidencio Theodore Work Phone: [facility] Start: 07-11-2023 End: 07-11-2023 ambulatory Fidencio Theodore [facility] Work Phone: Start: 07-04-2023 End: 07-04-2023 ambulatory FIDENCIO THEODORE Not Available Start: 01-08-2023 End: 01-08-2023 ambulatory Fany Oneill Other [facility] Other Start: 01-08-2023 Office outpatient vi sit 15 minutes Fany Oneill [facility] Start: 06-25-2022 End: 06-25-2022 ambulatory Angelina Gómez Other [facility] Other Start: 06-25-2022 Office outpatient ne w 30 minutes Angelina Rico [facility] Start: 04-13-2022 Encounter for other preprocedural examination DR FIDENCIO THEODORE [facility] Start: 04-12-2022 End: 04-12-2022 ambulatory [...] 02-15-[address] NONE LISTED REQUEST Facility: Procedures Date Procedure Procedure Detail Performing Clinician Start: 08-01-2023 Microscopic observat ion [Identifier] in Cervix by Cyto stain Ca STRONG Work Phone: Plan of Treatment Date Care Activity Detail Author Start: 09-08-2024 End: 09-08-2024 Patient encounter procedure 09/08/2024 3:00 PM EDT Office Visit [facility] [address] [place] [address] Ca Dowell PA [address] [place] [address] [facility] Start: 07-31-2024 Screening for malign ant neoplasm of cervix [facility] Start: 10-28-2023 Influenza vaccination Influenza Vacc ine (#1) [facility] CHLAMYDIA TRACHOMATI S (GENITO/STI) CHLAMYDIA TRACHOMATIS (GENITO/STI) Lab Routine Yeast infection Ordered: 05/08/2024 [facility] Comment on above: Ordered: 05/08/2024 Neisseria gonorrhoea e DNA [Presence] in Unspecified specimen by ANDREW with probe detection Neisseria gonorrhea DNA probe, direct Lab Routine Yeast infection Ordered: 05/08/2024 [facility] Comment on above: Ordered: 05/08/2024 SURESWAB(R) ADVANCED VAGINITIS PLUS, TMA SURESWAB(R) ADVANCED VAGINITIS PLUS, TMA Pathology and Cytology Routine Yeast infection Ordered: 05/08/2024 [facility] Work Phone: Comment on above: Ordered: 05/08/2024 Payers Date Payer Category [id number] 2021 Unknown [id number] 1990 Unknown [id number] [id number]. 2.593 1990 Unknown [id number] 2.16.840.1.763094.3.579. 2.593 1991 Unknown [id number] 2.16.840.1.597655.3.579. 2.593 1991 Unknown [id number] 2.16.840.1.053441.3.579. 2.593 1991 Unknown [id number] 2.16.840.1.148846.3.579. 2.593 1991 Unknown [id number] 2.16.840.1.366128.3.579. 2.1286 1991 Unknown [id number] 2.16.840.1.162693.3.579. 2.1286 1991 Unknown [id number] 2.16.840.1.508694.3.579. 2.9 1991 Unknown [id number] 2.16.840.1.359038.3.579. 2.1259 1991 Unknown [id number] 2.16.840.1.988506.3.579. 2.9 1991 Unknown [id number] 2.16.840.1.506738.3.579. 2.9 1991 Unknown [id number] 2.16.840.1.680180.3.579. 2.9 1991 Unknown [id number] 2.16.840.1.972287.3.579. 2.1259 1958 Unknown [id number] Social History Date Type Detail Facility Sex Assigned At [facility] Other Start: 1990 Sex Assigned At Female F [facility] Tobacco smoking status CAIS Tobacco smoking consumption unknown [facility] Start: 1990 Sex assigned at Not on file [facility] History of Present illness Narrative 05-08-2024 LIGIA Barker - 05/08/2024 1:40 PM EDT Note Date & Type Note Facility 05-08-2024 History of Presen t illness Narrative Reason for Appointment: Patient ID: Berenice Pruitt is a 33 y.o. female who presents for Vaginitis/Bacterial Vaginosis Patient presents today for Yeast infection MEDICATIONS No current outpatient medications ALLERGIES No Known Allergies PROBLEMS Active Ambulatory Problems Diagnosis Date Noted No Active Ambulatory Problems Resolved Ambulatory Problems Diagnosis Date Noted No Resolved Ambulatory Problems No Additional Past Medical History HISTORY PAST MEDICAL HISTORY SOCIAL HISTORY History reviewed. No pertinent past medical history. Social History Tobacco Use Smoking status: Not on file Smokeless tobacco: Not on file Substance Use Topics Alcohol use: Not on file Drug use: Not on file FAMILY HISTORY No family history on file. SURGICAL HISTORY Past Surgical History: Procedure Laterality Date ENDOMETRIAL ABLATION 04/12/2022 HYSTERECTOMY 08/29/2023 TUBAL LIGATION REVIEW OF SYSTEMS Review of Systems: Review of Systems Constitutional: Negative. HENT: Negative. Eyes: Negative. Respiratory: Negative. Cardiovascular: Negative. Gastrointestinal: Negative. Genitourinary: Negative. Musculoskeletal: Negative. Skin: Negative. Neurological: Negative. All other systems reviewed and are negative. Hematological: Negative. Endocrine: Negative. Allergic/Immunologic: Negative. OBJECTIVE Objective: Physical Exam Constitutional: Appearance: Normal appearance. She is well-developed and normal weight. HENT: Head: Normocephalic. Cardiovascular: Rate and Rhythm: Normal rate and regular rhythm. Pulses: Normal pulses. Pulmonary: Effort: Pulmonary effort is normal. Breath sounds: Normal breath sounds. Abdominal: General: Bowel sounds are normal. There is no distension. Palpations: Abdomen is soft. Tenderness: There is no abdominal tenderness. There is no guarding or rebound. Musculoskeletal: General: No swelling. Normal range of motion. Right lower leg: No edema. Left lower leg: No edema. Neurological: General: No focal deficit present. Mental Status: She is alert and oriented to person, place, and time. Skin: General: Skin is warm and dry. Psychiatric: Mood and Affect: Mood normal. Behavior: Behavior normal. Thought Content: Thought content normal. Judgment: Judgment normal. Vitals and nursing note reviewed. Exam conducted with a tracing lathe set up operator present. Vitals: Estimated body mass index is 34.12 kg/m as calculated from the following: Height as of 10/11/23: 5' 6 . Weight as of this encounter: 211 lb 6.4 oz. BP: 130/80 Patient's last menstrual period was 07/21/2023. ASSESSMENT & PLAN ICD-10-CM 1. Yeast infection B37.9 SURESWAB(R) ADVANCED VAGINITIS PLUS, TMA CHLAMYDIA TRACHOMATIS (GENITO/STI) Neisseria gonorrhea DNA probe, direct Patient presents today for yeast infection. Patient cultures obtained without difficulty. Documented by Christine Fenton LPN on behalf of: LIGIA Barker documented in this encounter [facility] Evaluation note 01-08-2023 Note Date & [...] no improvement in 2 to 3 days [facility] Other Evaluation note 06-25-2022 Note Date & [...] treatment plan. Patient left in stable condition. [facility] Other Clinical Note 04-12-2022 Note Date & Type Note Facility 04-12-2022 Note OPERATIVE NOTE OPERATION DATE: 04/12/2022 PROCEDURE: Joslyn endometrial ablation with hysteroscopy. PREOPERATIVE DIAGNOSIS: Menorrhagia. POSTOPERATIVE DIAGNOSIS: Menorrhagia. ANESTHESIA: General. SURGEON: Fidencio Theodore D.O. FEDERAL DISTRICT LAW CLERK: None. FINDINGS: Normal appearing cavity. No gross [...] taken to recovery in stable condition. [facility] Evaluation note Note Date & Type Note Facility Evaluation note [facility]: Evaluation note Note Date & Type Note Facility Evaluation note Diagnosis Yeast infection documented in this encounter [facility] History general Narrative - Reported Note Date & Type Note Facility History general Narrative - Reported Type Surgical History ablasion Surgical History tubal ligation Surgical History tonsillectomy Surgical History lithotripsy Hospitalization History see above [facility] Other Summary Purpose Family History No Family History Records Found Relationship Condition Age at Onset Recorded Date/T suzette Not Specified Hypertension Unknown Relationship Condition Age at Onset Recorded Date/T suzette mother Hypertension Unknown Advance Directives No Advanced Directives Records FoundNo Advanced Directives Records FoundNo Advanced Directives Records FoundNo Advanced Directives Records FoundNo Advanced Directives Records Found Additional Source Comments INFORMATION SOURCE (unrecogn ized section and content) DATE CREATED AUTHOR 10/23/2020 Lowell Aguiar [facility] DATE CREATED AUTHOR AUTHOR'S ORGANIZ ATION 04/13/2022 [facility] DATE CREATED AUTHOR AUTHOR'S ORGANIZ ATION 09/01/2023 [facility] DATE CREATED AUTHOR AUTHOR'S ORGANIZ ATION 01/03/2024 [facility] DATE CREATED AUTHOR AUTHOR'S ORGANIZ ATION 05/11/2024 [facility] EPIC REASON FOR VISIT (unrecogniz ed section and content) Reason Comments Vaginitis/Bacterial Vaginosis Care Teams (unrecognized sec tion and content) Team Status: Inactive Member Role Status Dates Fidencio Theodore Attending Provider Active Start: [place] 2023 End: July 11, 2023 Team Status: Inactive Member Role Status Dates Fidencio Theodore Attending Provider Active Start: Jesica martinez 2023 End: August 29, 2023 Goals (unrecognized section and content) Goals [...] BE BASED ON THE PRIMARY CLINICAL RECORDS. [facility]. provides no warranty or guarantee of the accuracy or completeness of information in this document.
--- OUTSIDE RECORDS SUMMARY | 2024-09-08 22:40 | XMS_ITS | Encounter Summary ---
Author Organization [facility] Address [address] [place] [address] Care Team Providers Care It Coordinator Name Role Phone Unavailable Primary Care Provider Unavailabl e Encounter Details Date Type Department Care Team (Late st Contact Info) Description 09/03/2023 Abstract [facility] [address] [address] Kurtis Theodore, DO [address], [facility] Social History Tobacco Use Types Packs/Day Years [...]
--- NOTE | 2024-09-08 23:04 | ECG_ITS ---
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
--- NOTE | 2024-09-08 23:06 | ED_ITS ---
HPI - Abdominal Pain General Chief Complaint: Abdominal Pain Stated Complaint: SOB Time Seen by Provider: 09/08/24 22:34 Source: patient Mode of arrival: walk-in Limitations: no limitations History of Present Illness HPI narrative: This 33-year-old female, non-smoker with a history of acid reflux who takes [id number] omeprazole presents for evaluation of sensation that there is a bubble in the center of her chest making it difficult for her to breathe. She states the symptoms started earlier tonight. She tried to take one of her acid reflux medications and promptly belch/vomited and it came out in her hand. She denies any daniella abdominal pain. She does not smoke. She is not on control. She denies the possibility of . She is not on any GLP weight loss medications. She states that she was supposed to have an endoscopy in the past but left the doctor that she was seeing and is currently seeing Fany Levin. She states she recently had an episode while she was shopping where she became pale and sweaty and felt like passing out and felt better after having a corn dog. She is not having any nausea, vomiting or diarrhea. She has not had any weight loss. There is no radiation of the pain in the center of her chest into her back, arm or jaw. Related Data Allergies Allergy/AdvReac Type Severity Reaction Status Date / Time No Known Drug Allergies Allergy Verified 09/08/24 22:42 Review of Systems ROS Status of ROS 10 or more systems reviewed and unremark able except as noted in history and below [facility] Medical History (Updated 09/09/24 @ 01:00 by Whitney Woodward MD) COVID-19 ?U07.1 - COVID-19 (ICD-10) Kidney stones ?N20.0 - Calculus of kidney (ICD-10) GERD (gastroesophageal reflux disease) ?K21.9 - Gastro-esophageal reflux disease without esophagitis (ICD-10) S/P extracorporeal shock wave therapy ?Z98.890 - Other specified postprocedural states (ICD-10) Dysmenorrhea ?N94.6 - Dysmenorrhea, unspecified (ICD-10) Dyspareunia Pelvic pain ?R10.2 - Pelvic and perineal pain (ICD-10) Menorrhagia ?N92.0 - Excessive and frequent menstruation with regular cycle (ICD-10) Surgical History (Updated 08/21/23 @ 08:18 by Kimberly Logan NP) History of tonsillectomy ?Z90.89 - Acquired absence of other organs (ICD-10) History of endometrial ablation ?Z98.890 - Other specified postprocedural states (ICD-10) History of bilateral salpingectomy ?Z90.79 - Acquired absence of other genital organ(s) (ICD-10) Family History (Updated 08/21/23 @ 08:18 by Kimberly Logan NP) Other Family history of cervical cancer Family history of colon cancer Family history of diabetes mellitus Family history of heart disease Family history of hypertension Family history of leukemia Social History Within the past year, how often did you have a drink containing alcohol: never Score interpretation: A score less than 3 is consistent with normal alcohol consumption. Smoking status: Never smoker Non-prescribed substance use: denies use Previous occupational history: Factory Highest level of school completed/degree received: high school graduate Little interest or pleasure in doing things: not at all Feeling down, depressed, or hopeless: not at all Exam Narrative Exam Narrative: Vital signs and Nursing Notes reviewed: Patient is afebrile with a normal pulse, blood pressure is elevated 165/97, she is not hypoxic with pulse ox of 100% on room air General: Awake, alert, oriented, no acute distress, lying comfortably on the stretcher-speech is clear, patient tolerating her secretions without difficulty HEENT: Normocephalic atraumatic, mucous membranes are moist and pink, eyes are clear, normal conjunctiva, vision is grossly intact, posterior pharynx is normal in appearance. Chest: Lungs are clear to auscultation with good air entry, there is no wheezing rhonchi or rales appreciated no accessory muscle use, patient is speaking in complete sentences-no chest wall tenderness to palpation CVS: Regular rate and rhythm S1-S2, no murmurs rubs or gallops, pulses are brisk and equal bilaterally ABD: Soft, nondistended, nontender, no rebound guarding or rigidity, bowel sounds are normal, no pulsatile masses appreciated Extremities: Moving all extremities, no lower extremity tenderness or swelling noted, negative Homans' sign, pulses are brisk and equal bilaterally Skin: Normal in appearance without rash,pallor, petechiae or purpura Neuro: No focal deficits Constitutional Vital Signs, click to edit/add: Last Vital Signs Temp 98.6 F 09/08/24 22:29 Pulse 81 09/08/24 22:29 Resp 18 09/08/24 22:29 BP 165/97 H 09/08/24 22:29 Pulse Ox 100 09/08/24 22:29 O2 Del Method Room Air 09/08/24 22:29 Course Vital Signs Vital signs: Vital Signs Temperature 98.6 F 09/08/24 22:29 Pulse Rate 81 09/08/24 22:29 Respiratory Rate 18 09/08/24 22:29 Blood Pressure 165/97 H 09/08/24 22:29 Pulse Oximetry 100 09/08/24 22:29 Oxygen Delivery Method Room Air 09/08/24 22:29 Temperature 98.6 F 09/08/24 22:29 Pulse Rate 81 09/08/24 22:29 Respiratory Rate 18 09/08/24 22:29 Blood Pressure 165/97 H 09/08/24 22:29 Pulse Oximetry 100 09/08/24 22:29 Oxygen Delivery Method Room Air 09/08/24 22:29 MDM - Abdominal Pain MDM Narrative Medical decision making narrative: This 33-year-old female with a history of reflux presents for evaluation of a sensation that she has a bubble in her mid chest behind her sternum. Symptoms started earlier today. She last ate a chicken wrap. She does not feel that this is stuck in her esophagus. She is not having any difficulty breathing swallowing or tolerating her secretions. She did take one of her omeprazole's and states she belched and it popped right out like it had not passed down. She is otherwise not having any nausea or vomiting. She states she has never had an endoscopy. She was scheduled for 1 when she stopped seeing the physician who had ordered it. She has been on [id number] omeprazole for extended period of time. She does not smoke. She denies any chest pain or shortness of breath. She has no daniella abdominal pain. Radiation of her discomfort into her arm, back or jaw. EKG was ordered due to the complaint of chest pain which is a sinus rhythm at 72 bpm with a normal axis and no acute findings. IV was placed and she was medicated with Tylenol, IV Pepcid and a GI cocktail. Routine labs including a cardiac workup was ordered. She has a normal white count and hemoglobin. Liver function tests and lipase are normal. Troponin and D-dimer are both normal. Abdominal series x-ray was ordered. It does not show any sign of bowel obstruction, there is normal cardiac borders, no pneumothorax, normal mediastinum. No pneumomediastinum appreciated. The results of the labs and x-ray were discussed with the patient. She is feeling better and tolerating ice water without difficulty. I explained to her that she may have reflux but she also may have a hiatal hernia that I cannot see on the x-ray which can cause her to have a sensation that food is stuck in her distal esophagus. She states she is following up with Gilda Glasgow in the near future and will address this with her. Lab Data Attestation: I reviewed the patient's lab results. Labs: Lab Results 09/08/24 Range/Units 23:39 WBC 11.4 H (4.0-11.0) 10^3/uL RBC 4.63 (4.20-5.40) 10^6/uL Hgb 13.6 (12.0-16.0) g/dL Hct 39.5 (36.0-48.0) % MCV 85.3 (81.0-99.0) fL MCH 29.4 (26.7-34.0) pg MCHC 34.4 (29.9-35.2) g/dL RDW 12.2 (11.0-15.0) % Plt Count 309 (150-450) 10^3/uL MPV 10.9 (9.5-13.5) fL Neut % (Auto) 57.9 (43.0-75.0) % Lymph % (Auto) 31.0 (20.5-60.0) % Schley % (Auto) 6.9 (1.7-12.0) % Eos % (Auto) 3.2 (0.9-7.0) % Baso % (Auto) 0.7 (0.2-2.0) % Neut # (Auto) 6.6 H (1.4-6.5) 10^3/uL Lymph # (Auto) 3.5 (1.2-3.8) 10^3/uL Schley # (Auto) 0.8 (0.3-0.8) 10^3/uL Eos # (Auto) 0.4 (0.0-0.7) 10^3/uL Baso # (Auto) 0.1 (0.0-0.1) 10^3/uL Abs Immat Gran (auto) 0.03 (0.00-0.03) 10^3/uL Imm/Tot Granulo (auto) 0.3 (0.0-0.5) % D-Dimer 0.30 (<=0.59) mg/L FEU Sodium 140 (136-145) mmol/L Potassium 3.6 (3.5-5.1) mmol/L Chloride 104 (98-107) mmol/L Carbon Dioxide 27.7 (21.0-32.0) mmol/L Anion Gap 11.9 BUN 12.0 (7.0-18.0) mg/dL Creatinine 0.75 (0.55-1.02) mg/dL Est GFR ( Amer) >60 (>=60 mL/min/1.73m^2) Est GFR (Non-Af Amer) >60 (>=60 mL/min/1.73m^2) BUN/Creatinine Ratio 16.0 Glucose 101 (74-106) mg/dL Calcium 9.4 (8.5-10.1) mg/dL Total Bilirubin 0.3 (0.2-1.0) mg/dL AST 18 (15-37) U/L ALT 41 (14-59) U/L Alkaline Phosphatase 98 (46-116) U/L Troponin I High Sens <4.0 L (4.0-51.3) pg/mL Total Protein 7.5 (6.4-8.2) g/dL Albumin 3.8 (3.4-5.0) g/dL Globulin 3.7 g/dL Albumin/Globulin Ratio 1.0 Lipase 32.0 (16.0-77.0) U/L ECG Data Attestation: I personally reviewed and interpreted this ECG as follows: (Sinus rhythm at 72 bpm, normal axis, normal intervals, no acute ST segment elevation or T wave inversion) Discharge Plan Discharge Chief Complaint: Abdominal Pain Clinical Impression: Reflux esophagitis Patient Disposition: Home, Self-Care Time of Disposition Decision: 00:59 Condition: Good Print Language: Pashto Instructions: Hiatal Hernia (ED), Diet for Stomach Ulcers and Gastritis (ED), Esophagitis (ED), Upper Endoscopy (DC) Referrals: Physician,Non-Staff, MD [Primary Care Provider] - 1 week FANY GLASGOW [Nurse Practitioner, Family Practice] - 1 week
[2024-09-08 23:50] LABS: Hematocrit 39.5 % (36.0-48.0); Hemoglobin 13.6 g/dL (12.0-16.0); Immature Granulocytes Abs Auto 0.03 10^3/uL (0.00-0.03); Immature Granulocytes Pct Auto 0.3 % (0.0-0.5); Lymphocytes Absolute Auto 3.5 10^3/uL (1.2-3.8); Mean Corpuscular HGB Conc 34.4 g/dL (29.9-35.2); Mean Corpuscular Hemoglobin 29.4 pg (26.7-34.0); Mean Corpuscular Volume 85.3 fL (81.0-99.0); Platelet Count 309 10^3/uL (150-450); Red Blood Count 4.63 10^6/uL (4.20-5.40); White Blood Count 11.4 10^3/uL (4.0-11.0)
[2024-09-09 00:06] LABS: Alanine Aminotransferase 41 U/L (14-59); Albumin Globulin Ratio 1.0; Albumin Level 3.8 g/dL (3.4-5.0); Alkaline Phosphatase 98 U/L (46-116); Anion Gap 11.9; Aspartate Amino Transferase 18 U/L (15-37); Blood Urea Nitrogen 12.0 mg/dL (7.0-18.0); Calcium 9.4 mg/dL (8.5-10.1); Carbon Dioxide 27.7 mmol/L (21.0-32.0); Chloride 104 mmol/L (98-107); Estimated GFR (African America >60 (>=60 mL/min/1.73m^2); Estimated GFR (Non-African Ame >60 (>=60 mL/min/1.73m^2); Globulin 3.7 g/dL; Glucose 101 mg/dL (74-106); Potassium 3.6 mmol/L (3.5-5.1); Sodium 140 mmol/L (136-145); Total Protein 7.5 g/dL (6.4-8.2)
[2024-09-09 00:11] LABS: Lipase 32.0 U/L (16.0-77.0)
[2024-09-09] MEDS: lidocaine HCL 15 ML, MAG HYDROX/ALUMINUM HYD/SIMETH 30 ML, HYOSCYAMINE SULFATE 0.25 MG PO (00:20)
[2024-09-09] MEDS: KETOROLAC TROMETHAMINE 30 MG/ML VIAL IVP (00:20)
[2024-09-09] MEDS: FAMOTIDINE/PF 20 MG/2 ML VIAL IV (00:20)
[2024-09-09 01:15] VITALS: BP 153/80; PULSE 77; O2SAT 98
== END 2024-09-09 01:15 | disposition home or self-care (01) ==
PROVIDERS: Emergency Provider Emergency Medicine
DX: K21.00 Gastro-esophageal reflux disease with esophagitis, without bleeding (principal); Z90.79 Acquired absence of other genital organ(s)
CPT/HCPCS: 36415; 74022; 80053; 83690; 84484; 85025; 85378; 93005; 96374; 96375; 99285; J1885; J3490